=== PATIENT | male | born 1945 | race Caucasian/White ===

== ENCOUNTER → 2017-06-03 | Outpatient (CLI) | payer MEDICARE, OTHER, SELFPAY | PROVIDERS: Family Provider Internal Medicine Adolescent Medicine; Visit Provider Internal Medicine Adolescent Medicine | DX: R05 Cough (principal) | CPT/HCPCS: 71020 ==

== ENCOUNTER → 2017-07-14 09:33 | Outpatient (CLI) | payer MEDICARE, OTHER, SELFPAY ==
[2017-07-14 11:47] VITALS: PULSE 77; PULSE 80
== END ==
PROVIDERS: Family Provider Internal Medicine Adolescent Medicine; PCP Internal Medicine Adolescent Medicine; Visit Provider Internal Medicine Adolescent Medicine
DX: R05 Cough (principal)
CPT/HCPCS: 94060; 94640; 94726; 94729

== ENCOUNTER → 2020-11-17 10:21 | Outpatient (CLI) | payer MEDICARE, OTHER, SELFPAY ==
[2020-11-17 11:41] LABS: Hemoglobin A1C 5.8 % (4.0-6.0)
[2020-11-17 11:44] LABS: Chloride 105 mmol/L (98-107); Sodium 142 mmol/L (136-145)
[2020-11-17 11:45] LABS: Potassium 4.7 mmoL/L (3.5-5.1)
[2020-11-17 11:47] LABS: Alanine Aminotransferase 8 U/L (12-78); Alkaline Phosphatase 81 U/L (38-126); Aspartate Amino Transferase 23 U/L (17-59); Bilirubin,Total 1.1 mg/dl (0.2-1.3); Blood Urea Nitrogen 14 mg/dl (9-20); Estimated Glomerular Filt Rate 65 ml/min (>60); GFR (African American) 79 ML/MIN (>60)
[2020-11-17 11:48] LABS: Albumin Level 3.9 g/dl (3.5-5.0); Albumin/Globulin Ratio 1.3 (1.1-1.8); Anion Gap 14.7 mEq/L (5-15); Calcium 8.6 mg/dl (8.4-10.2); Carbon Dioxide 27 mmol/L (22.0-30.0); Glucose 82 mg/dl (74-100); Total Protein,Serum 6.9 g/dl (6.3-8.2)
[2020-11-17 12:18] LABS: Thyroid Stimulating Hormone 3.31 uIU/mL (0.465-4.68)
== END ==
PROVIDERS: Visit Provider Internal Medicine Adolescent Medicine
DX: E03.9 Hypothyroidism, unspecified (principal); E11.9 Type 2 diabetes mellitus without complications; Z79.84 Long term (current) use of oral hypoglycemic drugs
CPT/HCPCS: 80053; 83036; 84443

== ENCOUNTER → 2021-02-23 09:06 | Outpatient (CLI) | payer MEDICARE, OTHER, SELFPAY ==
[2021-02-23 09:22] LABS: Alanine Aminotransferase 10 U/L (12-78); Albumin Level 3.4 g/dl (3.5-5.0); Albumin/Globulin Ratio 1.1 (1.1-1.8); Alkaline Phosphatase 74 U/L (38-126); Anion Gap 12.5 mEq/L (5-15); Aspartate Amino Transferase 18 U/L (17-59); Bilirubin,Total 0.4 mg/dl (0.2-1.3); Blood Urea Nitrogen 12 mg/dl (9-20); Calcium 8.5 mg/dl (8.4-10.2); Carbon Dioxide 28 mmol/L (22.0-30.0); Chloride 105 mmol/L (98-107); Estimated Glomerular Filt Rate 73 ml/min (>60); GFR (African American) 88 ML/MIN (>60); Globulin 3.1 g/dL (1.3-3.2); Glucose 111 mg/dl (74-100); Potassium 4.5 mmoL/L (3.5-5.1); Sodium 141 mmol/L (136-145); Total Protein,Serum 6.5 g/dl (6.3-8.2)
[2021-02-23 09:53] LABS: Hemoglobin A1C 6.3 % (4.0-6.0)
== END ==
PROVIDERS: Visit Provider Internal Medicine Adolescent Medicine
DX: E11.9 Type 2 diabetes mellitus without complications (principal); Z79.84 Long term (current) use of oral hypoglycemic drugs
CPT/HCPCS: 80053; 83036

== ENCOUNTER → 2021-05-28 19:45 | Outpatient (CLI) | payer MEDICARE, OTHER, SELFPAY ==
[2021-05-28 20:37] LABS: Hemoglobin A1C 6.1 % (4.0-6.0)
[2021-05-28 21:33] LABS: Chloride 105 mmol/L (98-107); Potassium 4.8 mmoL/L (3.5-5.1); Sodium 142 mmol/L (136-145)
[2021-05-28 21:35] LABS: Blood Urea Nitrogen 11 mg/dl (9-20); Estimated Glomerular Filt Rate 65 ml/min (>60); GFR (African American) 79 ML/MIN (>60)
[2021-05-28 21:36] LABS: Alanine Aminotransferase 10 U/L (12-78); Albumin Level 3.8 g/dl (3.5-5.0); Albumin/Globulin Ratio 1.3 (1.1-1.8); Alkaline Phosphatase 78 U/L (38-126); Anion Gap 9.8 mEq/L (5-15); Aspartate Amino Transferase 19 U/L (17-59); Bilirubin,Total 0.5 mg/dl (0.2-1.3); Calcium 8.7 mg/dl (8.4-10.2); Carbon Dioxide 32 mmol/L (22.0-30.0); Glucose 100 mg/dl (74-100); Total Protein,Serum 6.8 g/dl (6.3-8.2)
[2021-05-28 22:07] LABS: Thyroid Stimulating Hormone 1.29 uIU/mL (0.465-4.68)
== END ==
LOC: LAB 19:46 → LAB.DROPOF 05-29 10:40
PROVIDERS: Visit Provider Internal Medicine Adolescent Medicine
DX: E11.9 Type 2 diabetes mellitus without complications (principal); E78.5 Hyperlipidemia, unspecified; E03.9 Hypothyroidism, unspecified; Z79.84 Long term (current) use of oral hypoglycemic drugs
CPT/HCPCS: 80053; 83036; 84443

== ENCOUNTER → 2021-12-14 14:05 | Outpatient (CLI) | payer MEDICARE, OTHER, SELFPAY ==
--- NOTE | 2021-12-14 14:06 | CT_ITS ---
FINAL REPORT CLINICAL HISTORY: abnormal movement, history of TBI FINDINGS: Axial images of the head were obtained without contrast. Coronal reformatted images were also obtained. This study was performed with techniques to keep radiation doses as low as reasonably achievable (ALARA). Individualized dose reduction techniques using automated exposure control or adjustment of mA and/or kV according to the patient's size were employed. There is generalized age appropriate atrophy. There is no evidence of intracranial hemorrhage or mass. The ventricular size is within normal limits. There is no evidence of shift of the midline structures. No skull abnormality is seen on the bone window images. There is moderate mucosal thickening of the left maxillary sinus. IMPRESSION: No acute intracranial abnormality. Reviewed, Interpreted and Dictated by Lei Sanderson III, MD Transcribed by Emelia Jordan Authenticated and [facility]
== END ==
PROVIDERS: PCP Internal Medicine Adolescent Medicine; Visit Provider Specialist
DX: R25.1 Tremor, unspecified (principal); Z87.820 Personal history of traumatic brain injury
CPT/HCPCS: 70450

== ENCOUNTER → 2022-01-22 12:28 | Outpatient (CLI) | payer MEDICARE, OTHER, SELFPAY ==
[2022-01-22 14:23] LABS: Folate 5.85 ng/mL; Vitamin B12 > 1000 pg/mL (239-931)
== END ==
PROVIDERS: PCP Internal Medicine Adolescent Medicine; Visit Provider Specialist
DX: R25.1 Tremor, unspecified (principal)
CPT/HCPCS: 36415; 82607; 82746

== ENCOUNTER 2022-07-02 09:13 | Emergency (ER) | payer MEDICARE, OTHER, SELFPAY ==
[2022-07-02 09:35] VITALS: BP 137/61; PULSE 64; RESP 16; TEMP 36.8; O2SAT 96; BMI 33.5
--- NOTE | 2022-07-02 09:48 | EXP.UTC ---
Discharge Plan Disposition Patient Disposition: Home, Self-Care Condition: Good Prescriptions Prescriptions: No Action gabapentin 300 mg capsule 300 mg PO QHS trazodone 50 mg tablet 50 mg PO QHS PRN cyanocobalamin (vitamin B-12) 2,500 mcg tablet 2,500 mcg PO DAILY cholecalciferol (vitamin D3) 400 unit capsule 400 unit PO DAILY acetaminophen [Tylenol Extra Strength] 500 mg tablet 500 mg PO Q4H PRN furosemide 40 mg tablet 40 mg PO DAILY escitalopram oxalate 10 mg tablet 10 mg PO DAILY (DME) lancets [FreeStyle Lancets] 28 gauge misc See Rx Instructions .ROUTE .MEDSUPPLY Qty: 100 Rx Instructions: As directed (DME) FreeStyle Lite Strips Strip See Rx Instructions .ROUTE .MEDSUPPLY Qty: 10 Rx Instructions: As directed lovastatin 40 mg tablet 40 mg PO DAILY Anoro Ellipta 62.5-25 mcg/actuation blister with device INHALATION levothyroxine [Synthroid] 150 mcg tablet 150 mcg PO DAILY carvedilol 12.5 mg tablet 12.5 mg PO ONCE clotrimazole-betamethasone 1-0.05 % cream 1 applic TOPICAL TID Qty: 45 5RF Rx Instructions: Apply to penis BID-TID daily ofloxacin 0.3 % drops 3 drp OTIC DAILY PRN (Reason: ear wax) 7 Days Qty: 5 0RF Referrals Follow up/Referrals: Mamadou Mccabe MD [Primary Care Provider] - See instructions Activity Restrictions/Add. 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 and take as directed the Amoxicillin you Family Doctor sent in will treat your strep throat If you continue to have pain in your throat after you finish the medication make sure to follow up Return if needed If you start having issues swallowing food or water go straight to the Closest ER Clinical Impressions Clinical Impression: Strep throat Instructions Patient Instructions: DI for Strep Throat, Strep Throat, Amoxicillin Discharge ED Provider: Ro Gutiérrez [facility] [place] HPI General Stated complaint: having difficulty swallowing Time Seen by Provider: 07/02/22 09:48 History of Present Illness Provider Complaint: Patient states that he has been having pain in the left side of his throat when he swallows States that it hurts at times when he swallows and when he pushes on it feels weird. States that he seen his PCP yesterday and they said he had an ear infection and sent him in some antibiotics but hasnt picked them up yet States that he has still been eating and drinking ok but wanted someone to look at his throat and see if they see anything in there if he may have a scratch or something Related Data Home Medications Medication Instructions Recorded Confirmed acetaminophen 500 mg tablet 500 mg PO Q4H PRN 08/05/17 11/13/21 (Tylenol Extra Strength) cholecalciferol (vitamin D3) 10 400 unit PO DAILY 08/05/17 11/13/21 mcg (400 unit) capsule cyanocobalamin (vitamin B-12) 2,500 mcg PO DAILY 08/05/17 11/13/21 2,500 mcg tablet escitalopram oxalate 10 mg tablet 10 mg PO DAILY 08/05/17 12/10/21 furosemide 40 mg tablet 40 mg PO DAILY 08/05/17 12/10/21 gabapentin 300 mg capsule 300 mg PO QHS 08/05/17 12/10/21 trazodone 50 mg tablet 50 mg PO QHS PRN 08/05/17 12/10/21 blood sugar diagnostic (Ricardoyle #10 ea 01/09/21 11/13/21 Lite Strips) carvedilol 12.5 mg tablet 12.5 mg PO ONCE 01/09/21 12/10/21 lancets 28 gauge (FreeStyle #100 ea 01/09/21 12/10/21 Lancets) levothyroxine 150 mcg tablet 150 mcg PO DAILY 01/09/21 12/10/21 (Synthroid) lovastatin 40 mg tablet 40 mg PO DAILY 01/09/21 12/10/21 umeclidinium 62.5 mcg-vilanterol inhalation 01/09/21 12/10/21 25 mcg/actuation powdr for inhalation (Anoro Ellipta) Previous Rx's Medication Instructions Recorded ofloxacin 0.3 % ear drops 3 drp otic (ear) DAILY PRN ear wax 07/06/18 7 days #5 mL clotrimazole-betamethasone 1 1 applic topical TID #45 grams 01/09/21 %-0.05 % topical cream Allergies Allergy/Ad
[2022-07-02 09:49] LABS: UTC Strep Screen (Rapid) Positive (Negative)
[2022-07-02 10:03] VITALS: BP 137/61; PULSE 64; RESP 16; TEMP 36.8; O2SAT 96
== END 2022-07-02 10:07 | disposition home or self-care (01) ==
PROVIDERS: Emergency Provider Nurse Practitioner; PCP Internal Medicine Adolescent Medicine
DX: J02.0 Streptococcal pharyngitis (principal)
CPT/HCPCS: 87880; 99212; G0463

== ENCOUNTER 2022-11-25 11:32 | Observation (INO) | payer MEDICARE, OTHER, SELFPAY ==
[2022-11-25 11:15] VITALS: PULSE 48
--- NOTE | 2022-11-25 11:15 | CT_ITS ---
FINAL REPORT CLINICAL HISTORY: fall onto head, unknown LOC COMPARISON: 12/14/2021 FINDINGS: Axial images of the head were obtained without contrast. Coronal reformatted images were also obtained.This study was performed with techniques to keep radiation doses as low as reasonably achievable (ALARA). Individualized dose reduction techniques using automated exposure control or adjustment of mA and/or kV according to the patient''s size were employed. There is no evidence of intracranial hemorrhage or mass. The ventricular size is within normal limits. There is no evidence of shift of the midline structures. No abnormal extra axial fluid collection is identified. No skull abnormality is seen on the bone window images. There is right parietal scalp soft tissue swelling. Moderate left maxillary mucosal thickening is noted. IMPRESSION: No acute intracranial abnormality. Reviewed, Interpreted and Dictated by Lei Sanderson III, MD Transcribed by Tori Courtney Authenticated and [facility]
--- NOTE | 2022-11-25 11:15 | XR_ITS ---
FINAL REPORT CLINICAL HISTORY: weakness, dizziness COMPARISON: None FINDINGS: A single portable view of the chest was obtained. The heart size and pulmonary vascularity are within normal limits. The mediastinum is within normal limits. Mild bibasilar opacities may represent atelectasis or pneumonia. The bony thorax is intact. IMPRESSION: Mild bibasilar opacities. Reviewed, Interpreted and Dictated by Lei Sanderson III, MD Transcribed by Eileen Horta Authenticated and [facility]
--- NOTE | 2022-11-25 11:20 | CA_ITS ---
FINAL REPORT TECHNIQUE: Color Doppler, duplex Doppler and alfaro scale sonography of the bilateral neck arterial vasculature was performed. Velocities were measured in the carotid arteries. Stenosis evaluation based on the validated velocity criteria. CLINICAL HISTORY: dizziness, bradycardia, HTN, hyperlipidemia COMPARISON: None FINDINGS: The peak systolic velocity of the right common carotid artery is 70 cm/s. The peak systolic velocity of the right internal carotid artery is 90 cm/s and end diastolic velocity 19 cm/s. The ICA/CCA ratio 1.46. A mild amount of plaque is present. The right external carotid artery is patent. The right vertebral artery is patent with antegrade flow. The peak systolic velocity of the left common carotid artery is 87 cm/s. The peak systolic velocity of the left internal carotid artery is 95 cm/s and end diastolic velocity 19 cm/s. The ICA/CCA ratio is 1.41. A mild amount of plaque is present. The left external carotid artery is patent.The left vertebral artery is patent with antegrade flow. IMPRESSION: Less than 50% bilateral carotid stenoses. Bilateral patent vertebral arteries with antegrade flow. If indicated, CTA or MRA could further evaluate. Reviewed, Interpreted and Dictated by Lei Sanderson III, MD Transcribed by Eileen Horta Authenticated and [facility]
[2022-11-25 11:56] VITALS: BMI 31.5
[2022-11-25 12:00] VITALS: BP 106/63; PULSE 48; RESP 20; TEMP 36.6; O2SAT 94; BMI 31.1
[2022-11-25 12:01] LABS: Basophils % 0.4 % (0.1-2.0); Eosinophils # 0.2 K/mm3 (0.0-0.4); Eosinophils % 1.6 % (0.1-12.0); Hematocrit 44.9 % (42.0-52.0); Hemoglobin 14.3 g/dL (14.1-18.0); Lymphocytes # 1.1 K/mm3 (0.7-4.5); Lymphocytes % 12.2 % (10-50); Mean Corpuscular HGB Conc 31.9 g/dL (31.8-35.4); Mean Corpuscular Hemoglobin 27.2 pg (27.0-31.2); Mean Corpuscular Volume 85.5 fl (80-94); Mean Platelet Volume 8.1 fl (7.4-10.4); Monocytes # 0.6 K/mm3 (0.1-1.0); Monocytes % 6.9 % (1.7-9.3); Neutrophils # 7.1 K/mm3 (1.8-7.8); Neutrophils % 78.9 % (37.0-80.0); Platelet Count 202 K/mm3 (142-424); Red Blood Count 5.26 M/mm3 (4.60-6.20); Red Cell Distribution Width 15.1 % (11.5-17.5)
[2022-11-25 12:15] LABS: Anion Gap 12.1 mEq/L (5-15); Blood Urea Nitrogen 14 mg/dl (9-20); Calcium 8.4 mg/dl (8.4-10.2); Carbon Dioxide 28 mmol/L (22.0-30.0); Chloride 101 mmol/L (98-107); Creatinine Clearance Estimated 76 mL/min (50-200); Estimated Glomerular Filt Rate 59 ml/min (>60); GFR (African American) 71 ML/MIN (>60); Glucose 99 mg/dl (74-100); Potassium 4.1 mmoL/L (3.5-5.1); Sodium 137 mmol/L (136-145)
--- NOTE | 2022-11-25 12:23 | PC.NURSE ---
pt going to CT scan with radiology.
[2022-11-25 12:24] LABS: NT Pro Brain Natriuretic Pep. 976 pg/mL (0-450)
[2022-11-25 12:28] LABS: Troponin I < 0.01 ng/ml (0.00-0.034)
--- NOTE | 2022-11-25 12:39 | PC.NURSE ---
pt returned from CT at this time.
--- NOTE | 2022-11-25 13:22 | ECG_ITS ---
APPROVED REPORT Exam: Resting ECG HR:47 bpm ECG Measurements Heart Rate 47 AXES MD 259 P 59 QRSd 149 QRS 64 QT 464 T 45 QTc 428 Conclusion SINUS BRADYCARDIA WITH FIRST DEGREE AV BLOCK RIGHT BUNDLE BRANCH BLOCK [120+ ms QRS DURATION, UPRIGHT V1, 40+ ms S IN I/aVL/V4/V5/V6] ABNORMAL ECG UNCONFIRMED REPORT Electronically signed by : Mamadou Mccabe MD 11/26/2022 20:10:58
--- NOTE | 2022-11-25 14:03 | HMH.PHAINT1 ---
Pharmacy Intervention Comments: Home medication list verified through external fill history from outside pharmacy.
--- NOTE | 2022-11-25 15:22 | PC.NURSE ---
pt new admit this shift. pt alert and oriented. pt denies any pain. LS cta. bowel sounds active, abdomen soft nontender. pt up and ambulated around the room to bathroom. pt remains on telemetry. call light w/i reach.
[2022-11-25 15:28] LABS: Troponin I < 0.01 ng/ml (0.00-0.034)
[2022-11-25 16:00] VITALS: BP 121/47; PULSE 50; RESP 18; TEMP 36.8; O2SAT 97
[2022-11-25 16:58] VITALS: BP 109/60; BP 137/69; BP 142/72
[2022-11-25 17:18] LABS: Coronavirus 19, PCR Not Detected (NotDetected); Influenza A, PCR Not Detected (NotDetected); Influenza B, PCR Not Detected (NotDetected)
--- NOTE | 2022-11-25 17:28 | EXP.HP ---
History of Present Illness *Admission Date: 11/25/22 *Reason for visit:: hypotension, bradycardia, dizziness *History of present illness: 77 year old male with a history of hypothyroidism, HTN, HLD, anxiety, depression, neuropathy, diabetes, COPD and tremors presented to PCP office with dizziness and persistent bradycardia/hypotension. Seen in the office 11/22, SBP 90, HR 49, beta aiyana held x 24 hours then restarted at lower dose. Seen today for FU, SBP 82, HR 52. C/o weakness, dizziness stumbling around at home. Baseline HR 50's. Baseline SBP 130's. Denies CP, SOA or LE edema. No cough, chest congestion or fevers. No V/D or urinary symptoms. Direct admitted for IVF's and further evaluation. Of note- He had a fall off of son's bulldozer onto head 2 weeks ago, no LOC. [facility] Disclaimer: The information contained in this section may have been updated after the patient was seen, as this information can be updated by other users. Medical History (Updated 11/25/22 @ 17:38 by Mona Mathis APRN) COPD (chronic obstructive pulmonary disease) Diabetes mellitus, type 2 High cholesterol Surgical History H/O vasectomy History of cholecystectomy Social History Smoking Status: Former smoker alcohol intake: never substance use type: denies use current occupational status: retired Travel in the last 8 weeks: None household members: spouse housing: house Review of Systems Review of Systems Review of systems:: pertinent systems reviewed and negative unless documented below Constitutional Constitutional: Reports fatigue and Reports weakness Eyes Eyes: Reports system reviewed and no additional complaints, except as documented ENT Ears, Nose, Mouth, and Throat: Reports system reviewed and no additional complaints, except as documented and Reports dizziness *Cardiovascular Cardiovascular: Reports as per HPI *Respiratory Respiratory: Reports system reviewed and no additional complaints, except as documented *Gastrointestinal Gastrointestinal: Reports system reviewed and no additional complaints, except as documented *Genitourinary Genitourinary: Reports system reviewed and no additional complaints, except as documented *Musculoskeletal Musculoskeletal: Reports system reviewed and no additional complaints, except as documented *Neurologic Neurologic: Reports dizziness, Reports tremor(s) and Reports weakness Psychiatric Psychiatric: Reports anxiety and Reports depression Comments: well controlled on SSRI Endocrine Endocrine: Reports fatigue Hematologic/Lymphatic Hematologic/Lymphatic: Reports system reviewed and no additional complaints, except as documented Allergic/Immunologic Allergic/Immunologic: Reports system reviewed and no additional complaints, except as documented Meds Home Medications and Allergies Home Medications Medication Instructions Recorded Confirmed Type escitalopram oxalate 10 mg tablet 10 mg PO DAILY Mood 08/05/17 11/25/22 History blood sugar diagnostic (FreeStyle #10 ea 01/09/21 11/04/22 History Lite Strips) lancets 28 gauge (FreeStyle #100 ea 01/09/21 11/04/22 History Lancets) levothyroxine 150 mcg tablet 150 mcg PO DAILY Thyroid 01/09/21 11/25/22 History (Synthroid) lovastatin 40 mg tablet 40 mg PO DAILY Cholesterol 01/09/21 11/25/22 History gabapentin 300 mg capsule 300 mg PO AM Nerve pain 09/09/22 11/25/22 History trazodone 50 mg tablet 50 mg PO QHS Sleep 09/09/22 11/25/22 History cetirizine 10 mg tablet 10 mg PO ONCE Allergies 11/25/22 11/25/22 History clotrimazole-betamethasone 1 1 applic topical TID Rash 11/25/22 11/25/22 History %-0.05 % topical cream gabapentin 300 mg capsule 600 mg PO PM Nerve pain 11/25/22 11/25/22 History lifitegrast 5 % eye drops in a 1 drp Eye-Both DAILY Dry eye 11/25/22 11/25/22 History dropperette (Xiidra) umeclidinium 62.5 mcg-vilanterol 1 inh inhal
--- NOTE | 2022-11-25 17:37 | PC.NURSE ---
spoke with Dr. Mccabe in regards to patient. Dr. Mccabe states to d/c Carvedilol, order an EKG for in the am. Regular diet order and scds for Vte. Orders R&V. Dietary called for supper tray.
[2022-11-25 18:41] LABS: Troponin I < 0.01 ng/ml (0.00-0.034)
[2022-11-25 20:00] VITALS: BP 131/62; PULSE 50; PULSE 53; RESP 18; TEMP 36.3; O2SAT 96
[2022-11-25 20:19] LABS: Hemoglobin A1C 5.8 % (4.0-6.0)
[2022-11-26] VITALS: BP 142/69; PULSE 50; PULSE 60; RESP 18; TEMP 36.4; O2SAT 90
[2022-11-26 04:00] VITALS: BP 130/63; PULSE 58; RESP 20; TEMP 36.4; O2SAT 95; BMI 32.9
--- NOTE | 2022-11-26 05:30 | ECG_ITS ---
APPROVED REPORT Exam: Resting ECG HR:58 bpm ECG Measurements Heart Rate 58 AXES IN 248 P 68 QRSd 154 QRS 87 QT 450 T 32 QTc 448 Conclusion SINUS BRADYCARDIA WITH FIRST DEGREE AV BLOCK RIGHT BUNDLE BRANCH BLOCK [120+ ms QRS DURATION, UPRIGHT V1, 40+ ms S IN I/aVL/V4/V5/V6] ABNORMAL ECG UNCONFIRMED REPORT Electronically signed by : Mamadou Mccabe MD 11/26/2022 20:05:00
[2022-11-26 08:00] VITALS: BP 138/57; PULSE 58; PULSE 61; RESP 18; TEMP 36.7; O2SAT 95
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
--- NOTE | 2022-11-26 09:16 | HMH.PHAINT1 ---
Pharmacy Intervention Comments: Discharge medication counseling completed. Patient was starting no new meds, but was told to stop taking carvedilol. Patient had discussed this with Dr. Mccabe this morning. Patient and loved one verbalized understanding and had no questions.
--- NOTE | 2022-11-26 09:42 | HMH.OTEV ---
OT Inpatient Evaluation Rehab OT IP Evaluation Start: 11/26/22 08:15 Freq: ONCE Status: Active Protocol: Document 11/26/22 09:38 [facility] (Rec: 11/26/22 09:42 [facility] [id number]) Rehab OT IP Assessment Subjective History Pt oriented x 4 on arrival. Pt agreeable to engage in therapy evaluation. 77 year old male with a history of hypothyroidism, HTN, HLD, anxiety, depression, neuropathy, diabetes, COPD and tremors presented to PCP office with dizziness and persistent bradycardia/ hypotension. Pt was a direct admit on 11/25/22. Prior to being in the hosptial, pt lived at home with his . Pt was independent with all ADLs and IADLs. Pt did not require any type of AE during functional transfers or daily activities. Pt also still drove. Subjective I am ready to go home and I feel much better. Objective Patient Orientation Person,Place,Birthday,Month Upper Extremity Gross ROM WFL Bed Mobility bed mobility-scooting,bed mobility - supine/sit,bed mobility - rolling Assist Level Supervision/Stand by Transfer Training Sit/Stand Transfer Assist Level Supervision/Stand by Chair Transfer Ability Supervision/Stand by Chair Transfer Technique Sit to/from Ambulatory Chair Transfer Assistive Devices None Lower Body Dressing Ability Independent Rehab OT IP prob,goals,plan Problems Date of Evaluation: 11/26/22 Rehab Potential Rehab Potential Innapropriate for Skilled Therapy Discharge Plan OT Discharge Plan Pt appears to be at his baseline with functional transfers and ADL independence . Pt can return home with once medically stable per physician. Home health OT evaluation could be completed if family agreeable to evaluate patient's home safety . Eval Complexity Eval Charge Codes
--- NOTE | 2022-11-26 09:51 | SW/DCPLANNER ---
Addendum entered by Rachna Shi 11/27/22 12:49: Rosana stout/ [facility] called and stated that this patient refused home health services. Addendum entered by Rachna Shi 11/26/22 12:03: Rosana stout/ [facility] stated that services will begin tomorrow 11/27/22. Original Note: Patient is agreeable to home health services at time of discharge. Patient/ prefer to use [facility]. Patient information/order will be faxed today. Patient is expected to discharge home this afternoon.
--- NOTE | 2022-11-26 10:38 | HMH.PTEV ---
Physical Therapy Evaluation Rehab PT IP Evaluation Start: 11/26/22 08:15 Freq: ONCE Status: Active Protocol: Document 11/26/22 09:00 TESFAYE (Rec: 11/26/22 10:38 TESFAYE [id number]) Subjective/History History History 77 yowm adm to [facility] with hypotension, bradycardia, and dizziness. Hx of Hypothyroid, HTN, HLD, anxiety, DM, COPD. He reports he lives with his spouse, 3-4 steps to enter the home, and he is generally independent with all mobility without AD at baseline. Subjective Subjective He reports feeling much better today, no dizziness, feels he is at baseline for all mobility. Rehab PT IP Eval Objective Appearance Patient Behavior Appropriate Patient Orientation Person,Place,Time Difficulty following instructions none Speech Pattern Clear Ambulation Patient Able to Ambulate Yes Ambulation Observation IP General Gait Pattern Observation No Deviations/Normal Ambulation Distance (feet) 40 Ambulation Assistive Device None Ambulation Ability Independent Balance Ability to Arise Able, w/o using arms Sitting Balance Steady, safe Standing Balance Narrow stance w/o support Dynamic Sitting Balance Ability Normal Dynamic Standing Balance Ability Good Transfers Bed Transfer Ability Independent Chair Transfer Ability Independent Sit to Stand Bed Transfer Ability Supervision/Stand by Sit to Stand Chair Transfer Ability Independent ROM All Extremities PT ROM Status WFL MMT All Extremities PT MMT WFL Rehab PT IP prob,goals,plan Problems Date of Evaluation: 11/26/22 Discharge Plan PT Discharge Plan Pt is currently indpendent with all mobility and is appropriate to return home once medically stable for d/c. G -code Required No Eval Complexity Eval Charge Codes 23600 - High Complexity PHYSICIAN CERTIFICATION: I certify the specified therapy services for Bhavin Ruiz are required, authorized, and reviewed every 30 days.
--- NOTE | 2022-11-27 14:40 | CARE MANAGER ---
Spoke with patient for post-discharge phone interview, no issues noted.
== END 2022-11-26 10:28 | disposition home health service (06) ==
PROVIDERS: Nurse Practitioner Family; Admitting Provider Internal Medicine Adolescent Medicine; PCP Internal Medicine Adolescent Medicine; Visit Provider Internal Medicine Adolescent Medicine
DX: I45.10 Unspecified right bundle-branch block (principal); I65.23 Occlusion and stenosis of bilateral carotid arteries; I95.9 Hypotension, unspecified; G56.22 Lesion of ulnar nerve, left upper limb; J44.9 Chronic obstructive pulmonary disease, unspecified; E11.9 Type 2 diabetes mellitus without complications; E78.00 Pure hypercholesterolemia, unspecified; R29.6 Repeated falls; Z87.891 Personal history of nicotine dependence; Z79.899 Other long term (current) drug therapy; R06.9 Unspecified abnormalities of breathing
CPT/HCPCS: G0378; G0379; 36415; 70450; 71045; 80048; 83036; 83735; 83880; 84484; 85025; 87635; 87636; 88305; 93005; 93225; 93226; 93306; 93880; 97163; 97165; C9803; U0003; U0005

== ENCOUNTER 2023-01-08 12:19 | Day surgery (SDC) | payer MEDICARE, OTHER, SELFPAY ==
[2023-01-08 12:39] VITALS: BMI 31.8
[2023-01-08 13:13] VITALS: BP 155/69; PULSE 59; RESP 18; TEMP 36.9; O2SAT 95
[2023-01-08 13:18] VITALS: PULSE 66
[2023-01-08 13:33] VITALS: BP 157/80; PULSE 60; RESP 20; O2SAT 95
--- NOTE | 2023-01-08 13:33 | P.PCN_ITS ---
[facility] Loop Recorder Date: 01/08/23 Time: 13:25 Procedure Performed:: Implantation of loop recorder Indication:: sinus bradycardia and 2nd degree AVB Technique:: Patient was brought to the cardiac Electronic Data Interchange Specialist. After informed consent obtained, 1% lidocaine with epinephrine was used to anesthetize the site along the left anterior aspect of the chest near the sternal border. Using the preformed s calpel, an incision was made and using the supplied preloaded apparatus, the loop recorder was placed subcutaneously without difficulty. Following the deployment of the loop recorder interrogation of the device was performed to ensure appropriate voltage was detected. Once this was verified, Steri-Strips were placed over the incision and the patient was prepped to discharge home. Patient tolerated the procedure well with minimal discomfort. Impression:: Successful implantation of loop recorder Serial Number:: [id number] [employer] Arredondo Plan:: Routine postop care
== END 2023-01-08 14:01 | disposition home or self-care (01) ==
PROVIDERS: PCP Internal Medicine Adolescent Medicine; Visit Provider Internal Medicine
DX: I44.1 Atrioventricular block, second degree (principal); Z79.899 Other long term (current) drug therapy; E11.9 Type 2 diabetes mellitus without complications; J44.9 Chronic obstructive pulmonary disease, unspecified
CPT/HCPCS: 33285; C1764

== ENCOUNTER → 2023-01-09 07:39 | Outpatient (CLI) | payer MEDICARE, OTHER, SELFPAY ==
--- NOTE | 2023-01-09 | CA_ITS ---
APPROVED REPORT Exam: Pharmacologic Technologist: Wanda Ledezma, Ht: 5 ft 11 in Wt: 228 lbs BSA: 2.23 m2 HR: 57 bpm BP: 162/74 mmHg Rhythm: SINUS BRADYCARDIA, 1 DEGREE AVB, RBBB Indications: Arrhythmia Evaluation Medical History Medical History: Hyperlipidemia, Diabetes, Smoking Medications: Levothyroxine,,,,, Lovastatin,,,,, Trazadone,,,,, Gabapentin,,,,, Escitalopram,,,,, CetIRIZINE,,,,, ANoro Ellipta,,,,, Oxalate,,,,, Allergies: No known drug allergies Cardiac Risk Factors: Hyperlipidemia, Diabetes , Smoking Stress Test Details Test: LEXISCAN HR Resting HR: 56 bpm Max Heart Rate (APMHR): 144 bpm Max HR Achieved: 64 bpm Target HR (85% APMHR): 122 bpm % of APMHR: 44 Recovery HR: 56 bpm BP Resting BP: 162.0/74.0 mmHg Max BP: 164.0/57.0 mmHg Recovery BP: 164.0/57.0 mmHg ECG Resting ECG: SINUS BRADYCARDIA, 1 DEGREE AVB, RBBB Stress EC.[address] Change: None Clinical Exercise duration: 04:04 min Highest Stage Achieved: Stress ECG Conclusion PT HAD NO SYMPTOMS SINUS PAUSE OF 2.2 SECONDS IMMEDIATELY WITH LEXISCAN INFUSION. OTHER OCCASIONAL SINUS PAUSES OF 1.8 SECONDS OCCURING THROUGH OUT TEST. NO SIGNIFICANT ST CHANGES SINUS PAUSES; OTHERWISE UNREMARKABLE LEXISCAN STRESS. THE PATIENT WAS DISCHARGED IN STABLE AND ASYMPTOMATIC CONDITION [facility] [place] [facility] SEPARATELY Test Summary REST 04:29 . . 56 . 162/ 74 . . Stage 1 01:00 . . 61 . . . . Stage 2 01:00 . . 61 . . . . Stage 3 01:00 . . 63 . 150/ 77 . . Stage 4 01:00 . . 53 . 154/ 76 . . Stage 4 01:04 . . 60 . 154/ 76 . Stop exercise at 04:04 RECOVERY 01:00 . . 59 . . . . RECOVERY 02:00 . . 60 . 161/ 58 . . RECOVERY 03:00 . . 57 . 164/ 57 . . RECOVERY 03:18 . . 52 . 164/ 57 . . Electronically signed by : Sylwia Tirado, 01/09/2023 13:47:35
--- NOTE | 2023-01-09 07:44 | NM_ITS ---
APPROVED REPORT Exam: Nuclear Stress Test Indication: high cholesterol..family hx Patient Location: Outpatient Stress Tech: Wanda Ledezma DC Tech:Amelie ZamudioDUNCAN RT(R)(N) Ht: 5 ft 10 in Wt: 230 lbs HR: 55 bpm BP: 162/74 mmHg BSA: 2.21 m2 Rhythm: NSR TID: 0.93 BMI: 32.9 History: high cholesterol..family hx Procedure: Patient received 0.4 mg of intravenous Lexiscan, resting heart rate 55 bpm, resting blood pressure 162/74 mmHg, with Lexiscan maximum heart rate achieved was 64 bpm which is 85 % of the maximum predicted heart rate and blood pressure was 164/57 mmHg. With Lexiscan, patient denied any complaint of chest pain. The patient was not able to lay on his belly for prone images. Cardiac Stress and Resting SPECT Images: Cardiac Stress and Resting SPECT images were obtained using technetium 99m Myoview 31.6 mCi stress and 10.65 mCi at rest. The patient was not able to lie on his abdomen. Therefore, prone stress imaging could not be performed. This may affect the diagnostic interpretation of the study findings. Stress imaging in supine position demonstrate large sized, severe, fixed perfusion defect in the inferior and inferoseptal LV lamas from the base and extending distally towards the inferoapical region. Gated imaging demonstrates normal global LV systolic function. There is moderate hypokinesis in the inferior LV wall. LVEF is calculated at 66%. Conclusion: The patient was not able to lie on his abdomen. Therefore, prone stress imaging could not be performed. This may affect the diagnostic interpretation of the study findings. Large sized, severe, fixed perfusion defect in the inferior and inferoseptal LV lamas from the base and extending distally towards the inferoapical region. No evidence of reversible ischemia. Gated imaging demonstrates normal global LV systolic function. There is moderate hypokinesis in the inferior LV wall. LVEF is calculated at 66%. Electronically signed by : Sylwia Tirado, 01/09/2023 13:50:28
== END ==
PROVIDERS: PCP Internal Medicine Adolescent Medicine; Visit Provider Internal Medicine
DX: E11.9 Type 2 diabetes mellitus without complications (principal); I45.10 Unspecified right bundle-branch block; J44.9 Chronic obstructive pulmonary disease, unspecified; R00.1 Bradycardia, unspecified; R94.31 Abnormal electrocardiogram [ECG] [EKG]; Z87.891 Personal history of nicotine dependence; Z92.89 Personal history of other medical treatment
CPT/HCPCS: 78452; 93017; A9502; J2785

== ENCOUNTER 2023-06-03 11:20 | Emergency (ER) | payer OTHER, MEDICARE, SELFPAY ==
[2023-06-03] VITALS (7 sets, daily range): BP systolic 106–137; BP diastolic 33–87; PULSE 42–50; RESP 15–18; TEMP 36.6–36.7; O2SAT 95–97; BMI 31.2
--- NOTE | 2023-06-03 11:27 | PC.NURSE ---
c collar placed on pt
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
--- NOTE | 2023-06-03 12:01 | PC.WOUNDNOTE ---
ed guerrier removed and placed in a gown call light at
[2023-06-03 12:05] LABS: Basophils % 0.4 % (0.1-2.0); Eosinophils # 0.2 K/mm3 (0.0-0.4); Eosinophils % 2.3 % (0.1-12.0); Hematocrit 41.7 % (42.0-52.0); Hemoglobin 13.9 g/dL (14.1-18.0); Lymphocytes # 1.3 K/mm3 (0.7-4.5); Lymphocytes % 17.6 % (10-50); Mean Corpuscular HGB Conc 33.4 g/dL (31.8-35.4); Mean Platelet Volume 7.3 fl (7.4-10.4); Monocytes # 0.5 K/mm3 (0.1-1.0); Monocytes % 6.3 % (1.7-9.3); Neutrophils # 5.4 K/mm3 (1.8-7.8); Neutrophils % 73.4 % (37.0-80.0); Platelet Count 207 K/mm3 (142-424); Red Cell Distribution Width 14.4 % (11.5-17.5); White Blood Count 7.3 K/mm3 (4.8-10.8)
[2023-06-03 12:10] LABS: Anion Gap 6.2 mEq/L (5-15); Blood Urea Nitrogen 13 mg/dl (9-20); Calcium 7.9 mg/dl (8.4-10.2); Carbon Dioxide 30 mmol/L (22.0-30.0); Chloride 105 mmol/L (98-107); Creatinine Clearance Estimated 74 mL/min (50-200); Estimated Glomerular Filt Rate 59 ml/min (>60); GFR (African American) 71 ML/MIN (>60); Glucose 95 mg/dl (74-100); Potassium 4.2 mmoL/L (3.5-5.1); Sodium 137 mmol/L (136-145)
--- NOTE | 2023-06-03 12:26 | PC.NURSE ---
PT TO CT
[2023-06-03] MEDS: IOPAMIDOL-370 (76%);100ML BOTTLE 100 ML IV (13:06)
[2023-06-03] MEDS: SODIUM CHLORIDE 0.9% 10ML SYR (RAD ONLY) 10 ML IV (13:06)
[2023-06-03] MEDS: 0.9 % SODIUM CHLORIDE 50 ML VIAL 40 ML IV (13:06)
--- NOTE | 2023-06-03 14:08 | PC.NURSE ---
c collar removed per md marcelino
== END 2023-06-03 14:50 | disposition home or self-care (01) ==
PROVIDERS: Emergency Provider Emergency Medicine; PCP Internal Medicine Adolescent Medicine
DX: M54.2 Cervicalgia (principal); M25.511 Pain in right shoulder; M79.642 Pain in left hand; S06.9X9A Unspecified intracranial injury with loss of consciousness of unspecified duration, initial encounter; R00.1 Bradycardia, unspecified; J44.9 Chronic obstructive pulmonary disease, unspecified; E11.9 Type 2 diabetes mellitus without complications; E78.00 Pure hypercholesterolemia, unspecified; Z87.891 Personal history of nicotine dependence; V49.50XA Passenger injured in collision with unspecified motor vehicles in traffic accident, initial encounter
CPT/HCPCS: 70450; 71275; 72125; 72128; 72131; 73030; 73130; 74174; 80048; 85025; 99285; Q9967

== ENCOUNTER 2023-06-17 12:36 | Outpatient (CLI) | payer MEDICARE, OTHER, SELFPAY ==
--- NOTE | 2023-06-17 12:38 | CA_ITS ---
APPROVED REPORT EXAM: Limited 2D Echocardiogram It Programmer Analyst: Bobbi Neri, RCS, RVS Ht: 5 ft 11 in Wt: 223lbs BSA: 2.21 BP: 136/52 mmHg Rhythm: Bradycardia Indications: Pre-pacer placement 06/18/23, LVF-WNL11/2022, EF check 2D Dimensions IVSd 0.60 cm LVEF (Visual) 50.00 % PWd 0.73 cm EF AP4 48.30 % LVDd 4.57 cm GL Strain -10.8 % LVDs 5.28 cm RVID Base (AP4) 3.27 cm (M/F) 2.5-4.1 M-Mode Dimensions LVDd 4.57 cm (3.5-5.7) LVDs 5.28 cm (3.5-5.7) IVSd 0.60 cm (0.6-1.1) PWd 0.73 cm (0.6-1.1) FS 15.50% LV Diastology E Decel Time 183 (160-240 msec) E/A Ratio 1.36 MED E' 5.8 (>= 7 cm/sec) MED A' 9.50 cm/s E'/MED E' Ratio 13.40 (<= 14) Mitral Valve MV E Max Dharmesh. 78.0 (40-130 cm/s) MV A Velocity 57.0 (40-130 cm/s) E/A Ratio 1.36 MV Decel. Time 183 (160-240 ms) Other Information Study Quality: Fair Conclusion This is a limited TTE to evaluate of LVEF prior to PPM insertion. Limited windows were obtained. The left ventricle size is normal. There is normal LV wall thickness. There are no regional wall motion abnormalities noted. LVEF is 60%. Compared to prior study from 11/2022, the LVEF is unchanged. Electronically signed by : Sylwia Tirado MD 06/17/2023 17:39:16
== END 2023-06-17 23:59 ==
PROVIDERS: PCP Internal Medicine Adolescent Medicine; Visit Provider Internal Medicine
DX: I44.0 Atrioventricular block, first degree (principal); I44.1 Atrioventricular block, second degree; I45.10 Unspecified right bundle-branch block; R00.1 Bradycardia, unspecified; R94.31 Abnormal electrocardiogram [ECG] [EKG]; E11.9 Type 2 diabetes mellitus without complications; G25.0 Essential tremor; J44.9 Chronic obstructive pulmonary disease, unspecified; Z87.891 Personal history of nicotine dependence; Z92.89 Personal history of other medical treatment
CPT/HCPCS: 93308

== ENCOUNTER 2023-06-18 09:03 | Day surgery (SDC) | payer MEDICARE, OTHER, SELFPAY ==
[2023-06-18] VITALS (13 sets, daily range): BP systolic 106–180; BP diastolic 68–99; PULSE 49–62; RESP 17–20; O2SAT 94–97; BMI 31.1
--- NOTE | 2023-06-18 | IR_ITS ---
APPROVED REPORT Patient Location: Outpatient Pace Analyst: DUNCAN Ritter RT (R) PROCEDURES 1. Pocket formation for Permanent Pacemaker Placement. 2. Placement of an atrial sensing and pacing coil into the right atrial appendage. 3. Placement of a ventricular sensing and pacing coil in the right ventricular apex. 4. Permanent Pacemaker Placement. 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 COMPLICATIONS NONE Estimated Blood Loss: LESS THAN 10 ML TECHNIQUE 1% Lidocaine with epinephrine used to anesthetized the left anterior aspect of the chest. Scalpel was used to make the initial cutaneous incision while electrocautery was used to dissect down tinto the fascia. The fascia was lifted off the pectoralis muscle and digitally manipulated creating a pocket for the pacemaker. The patient was then placed in Trendelenburg position and the subclavian vein was accessed twice via the Selinger technique, there are two wires in the vein. A 6 Bhutanese sheath was placed under fluoroscopic guidance into the subclavian vein over one of the wires while keeping the other wire in place within the subclavian vein. The dilator was removed from the sheath. Using fluoroscopic guidance, the ventricular lead was placed into the right ventricular apex, screwed and secured into place. Electronic interrogation proved acceptable thresholds and voltage within the lead. Using 3-0 silk, the ventricular lead was then secured into place. Lead was secured to the facia using the 3-0 silk. Following this, the sheath was pealed away. An additional 6 Bhutanese fresh sheath and dilator was placed over the existing wire. Using fluoroscopic guidance, the atrial lead was the placed into the right atrial appendage and screwed and secured in place. Electrical interrogation demonstrated acceptable thresholds and voltage number. The atrial lead was then secured into place using 3-0 silk. 1 gram of Ancef was used to flush the pocket. Following the pacemaker generator being secured to the fascia and in place, Monocryl was used to close the subcutaneous layers while jany were used to close the cutaneous layer. A pressure dressing was placed and the patient was transferred to the postop holding area in stable condition for postoperative care. INTERROGATION Generator Model number: [employer] PD2402 Generator Serial number: [id number] Atrial lead model number:Tendril STS 8TC Atrial lead serial number: [id number] P-wave: 2.8 mV Impedence: 560 Ohms Threshold: 1.125V@0.4ms Right Ventricular lead model number: Conrad STS 8TC Right Ventricular lead serial number: [id number] R-wave: 8.5 mV Impedence: 860 Ohms Threshold: 1.0V@0.4ms Pacing Parameters: Mode: DDDR Base/Max Track:60 ppm / 130 ppm No diaphragmatic stimulation at 10 volts. IMPRESSION 1. Successful Pocket formation for Permanent Pacemaker Placement. 2.Successful Placement of an atrial sensing and pacing coil into the right atrial appendage. 3.Successful Placement of a ventricular sensing and pacing coil in the right ventricular apex. 4. Successful Permanent Pacemaker Placement. PLAN 1. Postop wound care. Electronically signed by : Jimenez Noriega MD 06/19/2023 12:20:43
[2023-06-18 09:42] LABS: Basophils # 0.1 K/mm3 (0-0.2); Basophils % 0.8 % (0.1-2.0); Eosinophils # 0.4 K/mm3 (0.0-0.4); Eosinophils % 4.5 % (0.1-12.0); Hematocrit 49.3 % (42.0-52.0); Lymphocytes # 1.4 K/mm3 (0.7-4.5); Lymphocytes % 17.6 % (10-50); Mean Corpuscular HGB Conc 32.4 g/dL (31.8-35.4); Mean Corpuscular Hemoglobin 28.2 pg (27.0-31.2); Mean Corpuscular Volume 87.2 fl (80-94); Mean Platelet Volume 8.2 fl (7.4-10.4); Monocytes # 0.5 K/mm3 (0.1-1.0); Monocytes % 5.8 % (1.7-9.3); Neutrophils # 5.5 K/mm3 (1.8-7.8); Neutrophils % 71.3 % (37.0-80.0); Platelet Count 268 K/mm3 (142-424); Red Blood Count 5.65 M/mm3 (4.60-6.20); Red Cell Distribution Width 14.7 % (11.5-17.5); White Blood Count 7.7 K/mm3 (4.8-10.8)
[2023-06-18 09:48] LABS: Anion Gap 11.1 mEq/L (5-15); Blood Urea Nitrogen 17 mg/dl (9-20); Calcium 8.6 mg/dl (8.4-10.2); Carbon Dioxide 29 mmol/L (22.0-30.0); Chloride 102 mmol/L (98-107); Creatinine Clearance Estimated 74 mL/min (50-200); Estimated Glomerular Filt Rate 59 ml/min (>60); GFR (African American) 71 ML/MIN (>60); Glucose 92 mg/dl (74-100); Potassium 4.1 mmoL/L (3.5-5.1); Sodium 138 mmol/L (136-145)
[2023-06-18] MEDS: diphenhydrAMINE 50MG/ML VIAL 50 MG IV (12:28)
[2023-06-18] MEDS: CEFAZOLIN SODIUM 1 GM in 0.9 % SODIUM CHLORIDE 50 ML IV (12:28)
[2023-06-18] MEDS: LIDOCAINE 1% W/EPI 1:100,000 20ML VIAL 20 ML SQ (12:28)
[2023-06-18] MEDS: 0.9 % SODIUM CHLORIDE 1000ML 1,000 ML 25 ML IV (12:29)
[2023-06-18] MEDS: CEFAZOLIN 1GM VIAL 1 GM TP (12:29)
--- NOTE | 2023-06-18 13:28 | XR_ITS ---
FINAL REPORT CLINICAL HISTORY: Confirm pacemaker/AID placement COMPARISON: 11/25/2022 FINDINGS: A single portable view of the chest was obtained. In the interval since the prior exam of November 2022 a left subclavian pacer has been placed. The heart size and pulmonary vascularity are within normal limits. The mediastinum is within normal limits. There are mild bibasilar opacities present, favor atelectasis. The bony thorax is intact. IMPRESSION: Interval placement of a left subclavian pacemaker since November 2022. Mild bibasilar opacities, favor atelectasis. Reviewed, Interpreted and Dictated by Lei Sanderson III, MD Transcribed by Jeri Adam Authenticated and [facility]
--- NOTE | 2023-06-18 13:35 | EXP.ANES.CKL ---
[facility] Disclaimer: The information contained in this section may have been updated after the patient was seen, as this information can be updated by other users. Medical History COPD (chronic obstructive pulmonary disease) Diabetes mellitus, type 2 Essential tremor High cholesterol Surgical History H/O vasectomy History of cholecystectomy Social History Smoking Status: Former smoker alcohol intake: never substance use type: denies use current occupational status: retired Travel in the last 8 weeks: None household members: spouse housing: house [facility] Anesthesia Checklist Patient Identification Patient Identification: Verbal (Name & ) Structural Data Admitted From: Home Planned Operative Procedure/s: pacemaker Consent for Planned Operative Procedure(s) Verified: Yes NPO Status Verified Time NPO: 00:00 Additional verifications Anesthesia Reactions: No Hx Blood Transfusions: No Blood Transfusion Reaction: No Airway Assessment Mallampati Score:: Class II C-Spine Mobility Assessed: Yes TMJ Mobility Assessed: Yes Dentition: Dentures-good fit Neurological Assessment Level of Consciousness: Awake, Alert and Appropriate Anesthesia Plan Anesthesia Risk discussed: Yes Anesthesia Plan: Verified ASA Class: III Anesthesia Type: MAC
--- NOTE | 2023-06-18 23:29 | EXP.ANES.CKL ---
[facility] Disclaimer: The information contained in this section may have been updated after the patient was seen, as this information can be updated by other users. Medical History COPD (chronic obstructive pulmonary disease) Diabetes mellitus, type 2 Essential tremor High cholesterol Surgical History H/O vasectomy History of cholecystectomy Social History Smoking Status: Former smoker alcohol intake: never substance use type: denies use current occupational status: retired Travel in the last 8 weeks: None household members: spouse housing: house [facility] Anesthesia Checklist Patient Identification Patient Identification: Verbal (Name & ) Structural Data Admitted From: Inpatient Planned Operative Procedure/s: labor epidural Consent for Planned Operative Procedure(s) Verified: Yes Additional verifications Anesthesia Reactions: No Hx Blood Transfusions: No Blood Transfusion Reaction: No Airway Assessment Mallampati Score:: Class II C-Spine Mobility Assessed: Yes TMJ Mobility Assessed: Yes Dentition: Good Dentition Neurological Assessment Level of Consciousness: Awake, Alert and Appropriate Anesthesia Plan Anesthesia Risk discussed: Yes Anesthesia Plan: Verified ASA Class: II Anesthesia Type: Epidural
--- NOTE | 2023-06-18 23:37 | EXP.ANES.CKL ---
[facility] Disclaimer: The information contained in this section may have been updated after the patient was seen, as this information can be updated by other users. Medical History COPD (chronic obstructive pulmonary disease) Diabetes mellitus, type 2 Essential tremor High cholesterol Surgical History H/O vasectomy History of cholecystectomy Social History Smoking Status: Former smoker alcohol intake: never substance use type: denies use current occupational status: retired Travel in the last 8 weeks: None household members: spouse housing: house [facility] Anesthesia Checklist Patient Identification Patient Identification: Verbal (Name & ) Structural Data Admitted From: Home Planned Operative Procedure/s: pacemaker Additional verifications Anesthesia Reactions: No Hx Blood Transfusions: No Blood Transfusion Reaction: No Airway Assessment C-Spine Mobility Assessed: Yes TMJ Mobility Assessed: Yes Dentition: Good Dentition Neurological Assessment Level of Consciousness: Awake, Alert and Appropriate Anesthesia Plan Anesthesia Risk discussed: Yes Anesthesia Plan: Verified ASA Class: III Anesthesia Type: MAC Assessment & Plan Plan Details Active Problems Reviewed?: Yes Additional Comments: mistakenly charted assessment for this patient Goals & Barriers: Goals Patient verbalizes understanding of disease process/healthy behaviors. Patient to follow plan of care. Education provided.
== END 2023-06-18 15:50 | disposition home or self-care (01) ==
PROVIDERS: PCP Internal Medicine Adolescent Medicine; Visit Provider Internal Medicine
DX: I44.1 Atrioventricular block, second degree (principal); G25.0 Essential tremor; I48.91 Unspecified atrial fibrillation; J44.9 Chronic obstructive pulmonary disease, unspecified; E11.9 Type 2 diabetes mellitus without complications; E78.5 Hyperlipidemia, unspecified; Z79.899 Other long term (current) drug therapy
CPT/HCPCS: 33208; 71045; 80048; 85025; C1785; C1898

== ENCOUNTER 2023-09-09 15:12 | Outpatient (CLI) | payer MEDICARE, OTHER, SELFPAY ==
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
== END 2023-09-09 23:59 ==
LOC: RAD 15:15
PROVIDERS: PCP Internal Medicine Adolescent Medicine; Visit Provider Internal Medicine Adolescent Medicine
DX: M25.512 Pain in left shoulder (principal); R07.81 Pleurodynia
CPT/HCPCS: 71046; 71100; 73030

== ENCOUNTER 2023-09-10 14:04 | Outpatient (CLI) | payer MEDICARE, OTHER, SELFPAY ==
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
== END 2023-09-10 23:59 ==
LOC: RAD 14:05
PROVIDERS: PCP Internal Medicine Adolescent Medicine; Visit Provider Internal Medicine Adolescent Medicine
DX: M25.532 Pain in left wrist (principal); Y92.009 Unspecified place in unspecified non-institutional (private) residence as the place of occurrence of the external cause; W19.XXXA Unspecified fall, initial encounter
CPT/HCPCS: 73110

== ENCOUNTER 2024-02-02 12:16 | Outpatient (CLI) | payer MEDICARE, OTHER, SELFPAY ==
[2024-02-02 12:44] LABS: Basophils # 0.1 K/mm3 (0-0.2); Basophils % 0.7 % (0.1-2.0); Eosinophils # 0.3 K/mm3 (0.0-0.4); Eosinophils % 2.7 % (0.1-12.0); Hematocrit 51.2 % (42.0-52.0); Hemoglobin 15.9 g/dL (14.1-18.0); Lymphocytes # 1.8 K/mm3 (0.7-4.5); Lymphocytes % 17.2 % (10-50); Mean Corpuscular Hemoglobin 30.2 pg (27.0-31.2); Mean Corpuscular Volume 97.3 fl (80-94); Mean Platelet Volume 8.2 fl (7.4-10.4); Monocytes # 0.7 K/mm3 (0.1-1.0); Monocytes % 6.7 % (1.7-9.3); Neutrophils # 7.8 K/mm3 (1.8-7.8); Neutrophils % 72.6 % (37.0-80.0); Platelet Count 229 K/mm3 (142-424); Red Blood Count 5.26 M/mm3 (4.60-6.20); Red Cell Distribution Width 14.4 % (11.5-17.5); White Blood Count 10.7 K/mm3 (4.8-10.8)
[2024-02-02 13:17] LABS: Alanine Aminotransferase 41 U/L (12-78); Albumin Level 3.7 g/dl (3.5-5.0); Alkaline Phosphatase 86 U/L (38-126); Anion Gap 11.1 mEq/L (5-15); Aspartate Amino Transferase 41 U/L (17-59); Bilirubin,Direct 0.1 mg/dl (0.0-0.4); Bilirubin,Indirect 0.7 mg/dL (0.0-0.9); Bilirubin,Total 0.8 mg/dl (0.2-1.3); Bilirubin,Unconjugated 0.7 mg/dL (0.0-1.1); Blood Urea Nitrogen 17 mg/dl (9-20); Calcium 9.1 mg/dl (8.4-10.2); Carbon Dioxide 23 mmol/L (22.0-30.0); Chloride 112 mmol/L (98-107); Chol/HDL Ratio 4.7 (1-3.5); Cholesterol 179 mg/dl (140-200); Estimated Glomerular Filt Rate 59 ml/min (>60); GFR (African American) 71 ML/MIN (>60); Glucose 94 mg/dl (74-100); HDL Cholesterol 38 mg/dl (40-60); Potassium 4.1 mmoL/L (3.5-5.1); Sodium 142 mmol/L (136-145); Total Protein,Serum 6.9 g/dl (6.3-8.2); Triglycerides 316 mg/dl (30-150); VLDL Cholesterol 63 mg/dL (0-40)
[2024-02-02 13:29] LABS: Free T4 (Free Thyroxine) 1.71 ng/dl (0.78-2.19)
[2024-02-02 13:46] LABS: Thyroid Stimulating Hormone 0.03 uIU/mL (0.465-4.68)
[2024-02-12 11:25] LABS: AChR Modulating Ab 22 % (0-45)
[2024-02-24 16:23] LABS: MuSK Antibodies <1.0 U/mL (.)
== END 2024-02-02 23:59 | disposition home or self-care (01) ==
LOC: LAB 12:17
PROVIDERS: PCP Internal Medicine Adolescent Medicine; Visit Provider Physician Assistant
DX: R53.1 Weakness (principal); H53.2 Diplopia; Z95.0 Presence of cardiac pacemaker; I48.91 Unspecified atrial fibrillation; G25.0 Essential tremor; R94.31 Abnormal electrocardiogram [ECG] [EKG]; E11.9 Type 2 diabetes mellitus without complications; J44.9 Chronic obstructive pulmonary disease, unspecified; Z87.891 Personal history of nicotine dependence
CPT/HCPCS: 36415; 80048; 80061; 80076; 83519; 83735; 84439; 84443; 85025; 86255

== ENCOUNTER 2024-04-15 11:42 | Outpatient (CLI) | payer MEDICARE, OTHER, SELFPAY ==
[2024-04-15 12:09] LABS: Basophils # 0.1 K/mm3 (0-0.2); Basophils % 0.9 % (0.1-2.0); Eosinophils # 0.3 K/mm3 (0.0-0.4); Eosinophils % 4.5 % (0.1-12.0); Hematocrit 45.9 % (42.0-52.0); Hemoglobin 14.9 g/dL (14.1-18.0); Lymphocytes # 1.5 K/mm3 (0.7-4.5); Lymphocytes % 20.1 % (10-50); Mean Corpuscular HGB Conc 32.5 g/dL (31.8-35.4); Mean Corpuscular Hemoglobin 29.6 pg (27.0-31.2); Mean Corpuscular Volume 90.9 fl (80-94); Mean Platelet Volume 8.1 fl (7.4-10.4); Monocytes # 0.5 K/mm3 (0.1-1.0); Monocytes % 6.1 % (1.7-9.3); Neutrophils # 5.2 K/mm3 (1.8-7.8); Neutrophils % 68.4 % (37.0-80.0); Platelet Count 253 K/mm3 (142-424); Red Blood Count 5.05 M/mm3 (4.60-6.20); Red Cell Distribution Width 14.3 % (11.5-17.5); White Blood Count 7.6 K/mm3 (4.8-10.8)
[2024-04-15 12:39] LABS: Alanine Aminotransferase 15 U/L (12-78); Albumin Level 3.4 g/dl (3.5-5.0); Alkaline Phosphatase 77 U/L (38-126); Anion Gap 10.3 mEq/L (5-15); Aspartate Amino Transferase 26 U/L (17-59); Bilirubin,Direct 0.3 mg/dl (0.0-0.4); Bilirubin,Indirect 0.4 mg/dL (0.0-0.9); Bilirubin,Total 0.7 mg/dl (0.2-1.3); Bilirubin,Unconjugated 0.4 mg/dL (0.0-1.1); Blood Urea Nitrogen 13 mg/dl (9-20); Carbon Dioxide 26 mmol/L (22.0-30.0); Chloride 112 mmol/L (98-107); Chol/HDL Ratio 5.3 (1-3.5); Cholesterol 181 mg/dl (140-200); Estimated Glomerular Filt Rate 59 ml/min (>60); GFR (African American) 71 ML/MIN (>60); Glucose 82 mg/dl (74-100); HDL Cholesterol 34 mg/dl (40-60); Potassium 4.3 mmoL/L (3.5-5.1); Sodium 144 mmol/L (136-145); Total Protein,Serum 6.1 g/dl (6.3-8.2); Triglycerides 226 mg/dl (30-150); VLDL Cholesterol 45 mg/dL (0-40)
[2024-04-15 12:50] LABS: Direct LDL Cholesterol 101.15 mg/dL (100-129)
[2024-04-15 12:54] LABS: Free T4 (Free Thyroxine) 1.33 ng/dl (0.78-2.19)
[2024-04-15 13:09] LABS: Thyroid Stimulating Hormone 0.03 uIU/mL (0.465-4.68)
== END 2024-04-15 23:59 | disposition home or self-care (01) ==
PROVIDERS: PCP Internal Medicine Adolescent Medicine; Visit Provider Nurse Practitioner
DX: I48.91 Unspecified atrial fibrillation (principal); R94.31 Abnormal electrocardiogram [ECG] [EKG]; E78.00 Pure hypercholesterolemia, unspecified; E11.9 Type 2 diabetes mellitus without complications; R53.1 Weakness
CPT/HCPCS: 36415; 80048; 80061; 80076; 84439; 84443; 85025

== ENCOUNTER 2024-11-05 10:10 | Outpatient (CLI) | payer MEDICARE, OTHER, SELFPAY ==
--- OUTSIDE RECORDS SUMMARY | 2024-11-05 10:13 | XMS_ITS | Encounter Summary ---
Author Name [facility] [facility] Address [address] [place] [address] Support Name Relationship Address Phone BOBBI, SCARLET Next of [place] [address] [place] [address] BOBBI SCARLET Emergency Contact [address] [place] [address] ENRIQUETA MARTINES Next of Kin Unknown [phone] NNAMDI MARTINES Emergency Contact Unknown Insurance Providers: All historical and current Section Date Range: From patient's date of to the date document was created. This section includes the names of all active insurance providers for the patient. Insurance Provider Type of Coverage Plan Name Start of Policy Coverage End of Policy Coverage Group Number Member ID Insurance Provider's Telephone Number Policy Eubanks's Name Patient's Relationship to Policy Eubanks [employer] [facility] RE DODA Jun 16, 2017 DODA [id number] Yumiko MARTINES PATIENT MEDICARE (WNR) MEDICARE (M) PART A Apr 16, 2011 PART A [id number] Yumiko MARTINES PATIENT MEDICARE (WNR) MEDICARE (M) PART B Apr 16, 2011 PART B [id number] [phone] Yumiko MARTINES PATIENT MEDICARE (WNR) MEDICARE (M) PART A Apr 16, 2011 PART A [id number] [phone] Yumiko MARTNIES PATIENT MEDICARE (WNR) MEDICARE (M) PART B Apr 16, 2011 PART B [id number] [facility] [[email or web address] Yumiko MARTINES PATIENT FOR LIFE TRICA RE FOR LIFE Jun 16, 2017 FOR LIFE [id number] Yumiko MARTINES PATIENT Selected Encounter This section includes the information on record at [place] for the Encounter. Date/Time Encounter Type Encounter Description Reason Pro vider Source October 28, 2024 01:14 PM Outpatient Encounter TELEPHONE/MEDICINE IHE Encounter Template Text not used by [facility] Plan of Treatment: Future Appointments (+ 6 months) and Future Tests (+/- 45 days) The Plan of Treatment section includes future care activities for the patient from all [place] treatmentfacilities. This section includes future appointments and future orders which are active, pending or scheduled. Future Appointments This section includes appointments that were scheduled to occur 6 months from the date of the Encounter, up to a maximum of 20 appointments. The data comes from all [place] treatment facilities. Appointment Date/Time Appointment Type Appointme nt Facility Name Dec 31, 2024 02:00 PM AMBULATORY - SURGERY [facility] Social History: Smoking Status (Most current) and Tobacco Use (All prior to encounter date) This section includes the most current, and the historical, smoking and tobacco- related health factors from the [place] facility where the Encounter took place. Current Smoking Status This section includes the most current smoking, or tobacco-related health factor, from the [place] facility where the Encounter took place. Date/Time Current Smoking Status Comment [facility] Mar 02, 2020 11:14 AM VA-TOBACCO FORMER USER [facility] Tobacco Use History This section includes a history of the smoking, or tobacco-related health factors, that were collected on or before the date of the Encounter. The data comes from the [place] facility where the Encounter took place. Date/Time Smoking Status/Tobacco Use Comment F acility Mar 02, 2020 11:14 AM [place]-TOBACCO QUIT 15 YRS OR MORE [facility] Apr 20, 2014 09:01 AM V9 QUIT TOBACCO >7 YEARS AGO [facility] Apr 17, 2010 05:58 PM V9 QUIT TOBACCO >7 YEARS AGO [facility]
--- OUTSIDE RECORDS SUMMARY | 2024-11-05 10:13 | XMS_ITS | Continuity of Care Document ---
Author Name [facility] Organization [facility] Care Team Providers Care Heating Element Repairer Name Role Phone [facility] Unavailable Unavailable Problems Combined list of problems from Department of Defense and Veterans Affairs facilities. It does not include entries that were removed or entered in error. Problem Status Onset Date Problem Type Date of Resolution Comments Source visit for: administrative purpose Active Condition [facility] visit for: occupational health / fitness exam Active Condition [facility] visit for: ears / hearing exam Active Condition [facility] Adjustment disorder with mixed emotional features Active Condition [facility] Anxiety disorder Active Condition [facility] N Diabetes mellitus Active [facility] Gastroesophageal reflux disease Active Condition [facility] N Hearing loss Active Condition [facility] N Hyperlipidemia Active Condition [place] [facility] N Hypertension Active Condition [facility] N Hypertension Active Condition [facility] N Hypothyroidism Active Condition [place] [facility] N 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 [facility] N Simple obesity Active Condition [place] [facility] N Dentures * (ICD-9-CM V52.3) Inactive Condition 04/20/2014 [facility] N Dermatitis * (ICD-9-CM 692.9) Inactive Condition 04/20/2014 [place] [facility] N Diagnosis: ICD-10-CM E11.40 Type 2 diabetes mellitus with diabetic neuropathy, unsp [facility] Diagnosis: ICD-10-CM E11.9 Type 2 diabetes mellitus without complications Active Diagnosis [facility] N Diagnosis: ICD-10-CM B35.1 Tinea unguium Active Diagnosis [facility] N Diagnosis: ICD-10-CM E11.42 Type 2 diabetes mellitus with diabetic polyneuropathy Active Diagnosis [facility] Medications Combined list of outpatient medications from Department of Defense and Veterans Affairs facilities.Medications provided include 1) outpatient medications from the last 15 months, and 2) patient-reported medications. Medication Details Route Status Patient Instructions Prescription Expires Prescription Number Last Dispense Date Ordering Provider Order Date Order Qty Source AREXVY (respirator y syncytial virus vacc. antigen/AS0 1E adjuvant/PF ), 120MCG/0.5, KIT, INTRAMUSC, GLAXOSMITHK LINE, 1 ea. KIT Active [id number] 4 2023 1 Pharmac y Data Transac tion Service Facilit y ASPIRIN 81MG TAB,EC TAKE ONE TABLET BY MOUTH DAILY ORAL ACTIVE BRADLEY BLACKMAN W 2009 [place] [facility] CARVEDILOL TAB TAKE BY MOUTH TWICE A DAY ORAL ACTIVE HE,LACHO ROSALES R 2019 [place] [facility] CETIRIZINE HCL 10MG TAB TAKE ONE TABLET BY MOUTH DAILY ORAL ACTIVE HE,JAY UR N 2013 [place] [facility] CLOBETASOL PROPIONATE 0.05% SOLN,TOP APPLY SMALL AMOUNT TO AFFECTED AREA TWICE A DAY TOPICA L ACTIVE BRADLEY BLACKMAN W 2009 [place] [facility] DICLOFENAC SODIUM (diclofenac sodium), 1 %, GEL (GRAM), TOPICAL, [employer] 100 g TUBE Active [id number] 2023 600 Pharmac y Data Transac tion Service Facilit y ESCITALOPRA M TAB,ORAL TAKE BY MOUTH DAILY ORAL ACTIVE HE,LACHO ROSALES R 2019 [place] [facility] FUROSEMIDE 40MG TAB TAKE ONE TABLET BY MOUTH QD ORAL ACTIVE HE,JAY UR N 2013 [place] [facility] GABAPENTIN (gabapentin ), 300 MG, CAPSULE, ORAL, XLCARE PHARMACE, 270 ea. BOTTLE Active [id number] 4 2023 180 Pharmac y Data Transac tion Service Facilit y GABAPENTIN TAB TAKE BY MOUTH ORAL ACTIVE HE,LACHO ROSALES R 2019 [place] [facility] LEVOTHYROXI NE NA 175MCG TAB (SYNTHROID) TAKE ONE TABLET BY MOUTH DAILY ORAL ACTIVE HEMISTY PARKER N 2013 [place] [facility] LOVASTATIN (lovastatin ), 40 MG, TABLET, ORAL, [employer] 1000 ea. BOTTLE Active [id number] 2023 90 Pharmac y Data Transac tion Service Facilit y LOVASTATIN TAB TAKE BY MOUTH AT BEDTIME ORAL ACTIVE HELACHO PARKER EK R 2019 [place] [facility] MEMANTINE HCL (memantine HCl), 10 MG, TABLET, ORAL, VIONA PHARMACEU, 60 ea. BOTTLE Active [id number] 4 2023 180 Pharmac y Data Transac tion Service Facilit y MEMANTINE HCL (memantine HCl), 5 MG, TABLET, ORAL, AMNEAL PHARMACE, 60 ea. BOTTLE Active [id number] 2023 60 Pharmac y Data Transac tion Service Facilit y MEMANTINE HCL (memantine HCl), 5 MG, TABLET, ORAL, VIONA PHARMACEU, 60 ea. BOTTLE Active [id number] 4 2023 180 Pharmac y Data Transac tion Service Facilit y METFORMIN TAB,ORAL TAKE BY MOUTH ORAL ACTIVE NERILACHO EK R 2019 [place] [facility] PROPRANOLOL HCL (propranolo l HCl), 60 MG, TABLET, ORAL, [employer] 100 ea. BOTTLE Cancele d [id number] : 2023 0 Pharmac y Data Transac tion Service Facilit y PROPRANOLOL HCL ER (propranolo l HCl), 60 MG, CAP SA 24H, ORAL, [employer], 100 ea. BOTTLE Cancele d [id number] : 2023 0 Pharmac y Data Transac tion Service Facilit y PROPRANOLOL HCL ER (propranolo l HCl), 60 MG, CAP SA 24H, ORAL, [employer], 100 ea. BOTTLE Active [id number] 4 2023 90 Pharmac y Data Transac tion Service Facilit y SHINGRIX (varicella- zoster virus glycoprotei n E,rec/AS01B adjuvant/PF ), 50 MCG/0.5, KIT, INTRAMUSC, GLAXOSMITHK LINE, 1 ea. KIT Active [id number] 4 2023 1 Pharmac y Data Transac tion Service Facilit y TOPIRAMATE (TOPIRAMATE ), 25 MG, TABLET, ORAL, [employer] 60 ea. BOTTLE Cancele d [id number] : 2023 0 Pharmac y Data Transac tion Service Facilit y TOPIRAMATE (TOPIRAMATE ), 25 MG, TABLET, ORAL, [employer] 60 ea. BOTTLE Cancele d [id number] : 2023 0 Pharmac y Data Transac tion Service Facilit y TOPIRAMATE (TOPIRAMATE ), 50 MG, TABLET, ORAL, [employer] 60 ea. BOTTLE Cancele d [id number] : 2023 0 Pharmac y Data Transac tion Service Facilit y TOPIRAMATE (TOPIRAMATE ), 50 MG, TABLET, ORAL, [employer] 60 ea. BOTTLE Active [id number] 4 2023 120 Pharmac y Data Transac tion Service Facilit y TOPIRAMATE (TOPIRAMATE ), 50 MG, TABLET, ORAL, [employer] 60 ea. BOTTLE Active [id number] 4 2023 120 Pharmac y Data Transac tion Service Facilit y TOPIRAMATE (TOPIRAMATE ), 50 MG, TABLET, ORAL, [employer] 60 ea. BOTTLE Active [id number] 4 2023 120 Pharmac y Data Transac tion Service Facilit y TRAZODONE TAB TAKE BY MOUTH ORAL ACTIVE LACHO HE 2019 [place] [facility] Allergies, Adverse Reactions, Alerts Combined list of allergies from Department of Defense and Veterans Affairs facilities. It does not include entries that were removed or entered in error. Substance Category Reaction Severity Reaction type Status Date Reported Comments Source No Known Allergies Drug allergy (disorder) active 12/31/2005 [facility] [place] Immunizations Combined list of available immunizations from the Department of Defense and Veterans Affairs facilities. Immunization Series Date Given Administered By Site Reaction Lot Number CVX Code Drug Craft Demonstrator Status Comments Source zoster recombinant 2023 () Not Given zoster recombina nt [facility] [id number] (HISTORICAL) 2013 33 complet ed [place] [facility] PNEUMOCOCCAL, UNSPECIFIED FORMULATION 2013 109 complet ed [place] [facility] INFLUENZA A & B (HISTORICAL) 2013 88 complet ed [place] [facility] TD(ADULT) UNSPECIFIED FORMULATION 2011 139 complet ed [place] [facility] INFLUENZA A & B (HISTORICAL) 2009 88 complet ed [place] [facility] TD(ADULT) UNSPECIFIED FORMULATION 2003 139 complet ed [place] [facility] Encounters Combined list of: 1) Encounters from Department of Veterans Affairs facilities going backup to the last 18 months, not all VA inpatient encounters are included; 2) Encounters from the Department of Defense facilities going backup to 280 months. Location Location Details Encounter Type Encounter Number Reason For Visit Attending Provider ADM Date DC Date Status Disposition Source [place], [place] OUTPATIENT [id number] hearing exam LILIA MARLEY 10/10 Released w/o Limitations [place]) OUTPATIENT [id number] annual PE WILLIE GARIBAY 10/10 Released w/o Limitations Am[facility] MENDOZA [place] Amaris [place]) OUTPATIENT [id number] AA&E PIOTR MEDRANO 02/27 Released w/o Limitations Am[place]END[place] Am[place]END[place] OUTPATIENT [id number] ANGÉLICA Hoffman 11/21 Released w/o Limitations [place] [place] [facility] O/P EST LOW 20 MIN [id number] Diagnos is: ICD-10- CM E11.40 Type 2 diabete s mellitu s with diabeti c neuropa thy, unsp RODEUGENIO,MAEVE AN S 10/12 [place] [facility] O/P EST LOW 20 MIN [id number] Diagnos is: ICD-10- CM E11.42 Type 2 diabete s mellitu s with diabeti c polyneu ropathy HASLER,PHI LLIP W 02/08 [place] [facility] OFF/OP EST MAY X REQ PHY/QHP [id number] Diagnos is: ICD-10- CM B35.1 Tinea unguium KEIRY,PHI LLIP W 02/26 [place] [facility] DIAB SHOE FOR DENSITY INSERT [id number] Diagnos is: ICD-10- CM E11.9 Type 2 diabete s mellitu s without complic ations PAUL,CAN DACE L 03/16 [place] [facility] DIAB SHOE FOR DENSITY INSERT [id number] Diagnos is: ICD-10- CM E11.9 Type 2 diabete s mellitu s without complic ations PAULCAN DACE L 04/01 [place] [facility] Outpatient Encounter [id number] 06/14 [place] Outpatient Encounter [id number] 07/23 [place] O/P EST LOW 20 MIN [id number] Diagnos is: ICD-10- CM E11.40 Type 2 diabete s mellitu s with diabeti c neuropa thy, unsp FOLLMER,AM Y S 10/01 [place] [facility] Outpatient Encounter [id number] 10/28 [place] [facility] Outpatient Encounter [id number] 10/28 [place] [facility] Outpatient Encounter [id number] 10/28 [place] [facility] Procedures Combined list of: 1) Procedures from Department of [facility] Affairs facilities going back up to thelast 18 months, not all [place] non-surgical procedures are included; 2) All procedures from the Department of Defense facilities. Procedure Procedure Type Code Date Perfomer Comments Sourc e SPECIAL REPORTS SUCH INSURANCE FORMS, MORE THAN THE INFORMATION CONVEYED IN THE USUAL MEDICAL COMMUNICATIONS OR STANDARD REPORTING FORM 12/31/2005 DoD VISUAL FIELD EXAM,UNILAT/BI,INTERP&REP;EXT EXM(EG,GOLDMANN VIS FLD,AT LEAST 3 ISOP PLOT&STAT DET W/IN RODNEY 30DEG/QUANT,AUTO THRSH OLYA,OCT G-1,,HUMP VIS FLD ANAL FULL THRSH 30-2,24-2, OR 60-2) 10/14/2005 [place] SCREENING TEST, PURE TONE, AIR ONLY 10/14/2005 DoD SCREENING TEST, PURE TONE, AIR ONLY 10/22/2004 DoD SCREENING TEST, PURE TONE, AIR ONLY 10/11/2004 DoD SCREENING TEST, PURE TONE, AIR ONLY 09/26/2004 DoD VISUAL FIELD EXAM,UNILAT/BI,INTERP&REP;EXT EXM(EG,GOLDMANN VIS FLD,AT LEAST 3 ISOP PLOT&STAT DET W/IN RODNEY 30DEG/QUANT,AUTO THRSH OLYA,OCT G-1,42,HUMP VIS FLD ANAL FULL THRSH 30-2,24-2, OR 60-2) 09/26/2004 Do D SPECIAL REPORTS SUCH INSURANCE FORMS, MORE THAN THE INFORMATION CONVEYED IN THE USUAL MEDICAL COMMUNICATIONS OR STANDARD REPORTING FORM 01/24/2004 DoD SPECIAL REPORTS SUCH INSURANCE FORMS, MORE THAN THE INFORMATION CONVEYED IN THE USUAL MEDICAL COMMUNICATIONS OR STANDARD REPORTING FORM 01/10/2004 DoD SPECIAL REPORTS SUCH INSURANCE FORMS, MORE THAN THE INFORMATION CONVEYED IN THE USUAL MEDICAL COMMUNICATIONS OR STANDARD REPORTING FORM 12/28/2003 DoD SPECIAL REPORTS SUCH INSURANCE FORMS, MORE THAN THE INFORMATION CONVEYED IN THE USUAL MEDICAL COMMUNICATIONS OR STANDARD REPORTING FORM 09/26/2003 DoD REMOVAL OF SUTURES UNDER ANESTHESIA (OTHER THAN LOCAL), SAME SURGEON 09/19/2003 DoD SIMPLE REPAIR OF SUPERFICIAL WOUNDS OF SCALP, NECK, AXILLAE, EXTERNAL GENITALIA, TRUNK AND/OR EXTREMITIES (INCLUDING HANDS AND FEET); 7.6 CM TO 12.5 CM 09/06/2003 DoD SPECIAL REPORTS SUCH INSURANCE FORMS, MORE THAN THE INFORMATION CONVEYED IN THE USUAL MEDICAL COMMUNICATIONS OR STANDARD REPORTING FORM 12/21/2002 DoD VISUAL FIELD EXAM,UNILAT/BI,INTERP&REP;EXT EXM(EG,GOLDMANN VIS FLD,AT LEAST 3 ISOP PLOT&STAT DET W/IN RODNEY 30DEG/QUANT,AUTO THRSH OLYA,OCT G-1,32/42,HUMP VIS FLD ANAL FULL THRSH 30-2,24-2, OR 30/60-2) 09/15/2002 Do D DETERMINATION OF VENOUS PRESSURE 08/09/2002 DoD VISUAL FIELD EXAM,UNILAT/BI,INTERP&REP;EXT EXM(EG,GOLDMANN VIS FLD,AT LEAST 3 ISOP PLOT&STAT DET W/IN RODNEY 30DEG/QUANT,AUTO THRSH OLYA,OCT G-1,32/42,HUMP VIS FLD ANAL FULL THRSH 30-2,24-2, OR 30/60-2) 09/15/2001 Do D DETERMINATION OF VENOUS PRESSURE 03/25/2001 DoD DETERMINATION OF VENOUS PRESSURE 03/09/2001 DoD SCREENING TEST, PURE TONE, AIR ONLY 10/08/2000 DoD VISUAL FIELD EXAM,UNILAT/BI,INTERP&REP;EXT EXM(EG,GOLDMANN VIS FLD,AT LEAST 3 ISOP PLOT&STAT DET W/IN RODNEY 30DEG/QUANT,AUTO THRSH OLYA,OCT G-1,32/42,HUMP VIS FLD ANAL FULL THRSH 30-2,24-2, OR 30/60-2) 09/24/2000 Do D VISUAL FIELD EXAM,UNILAT/BI,INTERP&REP;EXT EXM(EG,GOLDMANN VIS FLD,AT LEAST 3 ISOP PLOT&STAT DET W/IN RODNEY 30DEG/QUANT,AUTO THRSH OLYA,OCT G-1,32/42,HUMP VIS FLD ANAL FULL THRSH 30-2,24-2, OR 3060-2) 09/17/2000 Do D DETERMINATION OF VENOUS PRESSURE 09/09/2000 [facility] AMBULATORY BLOOD PRESSURE MONITORING, UTILIZING REPORT-GENERATING SOFTWARE, AUTOMATED, WORN CONTINUOUSLY FOR 24 HOURS OR LONGER; INCLUDING RECORDING, SCANNING ANALYSIS, INTERPRETATION AND REPORT 08/20/2000 [facility] DETERMINATION OF VENOUS PRESSURE 07/07/2000 [facility] DETERMINATION OF VENOUS PRESSURE 06/23/2000 [facility] DETERMINATION OF VENOUS PRESSURE 06/04/2000 [facility] DETERMINATION OF VENOUS PRESSURE 04/14/2000 [facility] SCREENING TEST, PURE TONE, AIR ONLY 10/02/1999 [facility] Social History Combined list of available smoking, tobacco, and other social history from Department of Defense and Veterans Affairs facilities. Social History Type Response Date Comment Sourc e Tobacco smoking status NHIS VA-TOBACCO FORMER USER 03/02/2020 [facility] History of tobacco use VA-TOBACCO QUIT 15 YRS OR MORE 03/02/2020 [facility] History of tobacco use V9 QUIT TOBACCO >7 YEARS AGO 04/20/2014 [facility] History of tobacco use V9 QUIT TOBACCO >7 YEARS AGO 04/17/2010 [facility] This section is an empty social history section. [facility] Plan of Care List of future care activities from Department of [facility] Affairs facilities. Additional future care activities may be listed in the Assessment and Plan section. Date/Time Care Activity Care Activity Detail Facili ty 12/31/2024 AMBULATORY - SURGERY AMBULATORY - SURGERY [facility]
--- OUTSIDE RECORDS SUMMARY | 2024-11-05 10:13 | XMS_ITS | Encounter Summary ---
Author Name [facility] [place] Address [address] [place] [address] Support Name Relationship Address Phone BOBBI, SCARLET Next of [place] [address] [place] [address] BOBBI SCARLET Emergency Contact [address] [place] [address] ENRIQUETA MARTINES Next of Kin Unknown NNAMDI MARTINES Emergency Contact Unknown [phone] Insurance Providers: All historical and current Section [...] TRICA RE DODA Jun 16, 2017 DODA [id number] Yumiko MARTINES PATIENT MEDICARE (WNR) MEDICARE (M) PART A Apr 16, 2011 PART A [id number] Yumiko MARTINES PATIENT MEDICARE (WNR) MEDICARE (M) PART B Apr 16, 2011 PART B [id number] [id number] Yumiko MARTINES PATIENT MEDICARE (WNR) MEDICARE (M) PART A Apr 16, 2011 PART A [id number] Yumiko MARTINES PATIENT MEDICARE (WNR) MEDICARE (M) PART B Apr 16, 2011 PART B [id number] [facility] Yumiko MARTINES PATIENT FOR LIFE TRICA RE FOR LIFE Jun 16, 2017 FOR LIFE [id number] Yumiko MARTINES PATIENT Selected Encounter This section includes the information on record at [place] for the Encounter. Date/Time Encounter Type Encounter Description Reason Pro vider Source October 28, 2024 02:09 PM Outpatient Encounter TELEPHONE/MEDICINE IHE Encounter Template Text not used by [facility] Plan of Treatment: Future Appointments (+ 6 months) and Future Tests (+/- 45 days) The Plan of Treatment section includes future care activities for the [facility] [place] [facility] This section includes future appointments and future orders which are active, pending or scheduled. Future Appointments This section includes appointments that were scheduled to occur 6 months from the date of the Encounter, up to a maximum of 20 appointments. The data comes from all [place] treatment facilities. Appointment Date/Time Appointment Type Appointme nt Facility Name Dec 31, 2024 02:00 PM AMBULATORY - SURGERY [facility] Social History: Smoking Status (Most current) and Tobacco Use (All prior to encounter date) This section includes the most current, and the historical, smoking and tobacco- related health factors from the [place] facility where the Encounter took place. Current Smoking Status This section includes the most current smoking, or tobacco-related health factor, from the [place] facility where the Encounter took place. Date/Time Current Smoking Status Comment Marshall ity Mar 02, 2020 11:14 AM VA-TOBACCO FORMER USER [facility] Tobacco Use History This section includes a history of the smoking, or tobacco-related health factors, that were collected on or before the date of the Encounter. The data comes from the [place] facility where the Encounter took place. Date/Time Smoking Status/Tobacco Use Comment F acility Mar 02, 2020 11:14 AM VA-TOBACCO QUIT 15 YRS OR MORE [facility] Apr 20, 2014 09:01 AM V9 QUIT TOBACCO >7 YEARS AGO [facility] Apr 17, 2010 05:58 PM V9 QUIT TOBACCO >7 YEARS AGO [facility] Encounter Notes: All associated encounter notes This section contains the clinical notes associated to the Encounter. Date/Time Encounter Note(s) Provider Source October 28, 2024 02:09 PM ADMINISTRATIVE NOT E: LOCAL TITLE: V9 [facility] ADMINISTRATIVE NOTE STANDARD TITLE: ADMINISTRATIVE NOTE DATE OF NOTE: OCTOBER 28, 2024@14:09 ENTRY DATE: OCTOBER 28, 2024@14:09:42 AUTHOR: LINDSEY KAUFMAN COSIGNER: URGENCY: STATUS: COMPLETED Toxic Exposure Screening: Attempts to contact [place]/caregiver to perform TRISTAN: 1 Contact type attempted: Telephone, unable to leave message (I called number listed in CPRS two times back to back and neither time was provided a VM option. The first time I called VM seemed to pecan picker but then ended prior to giving me a chance to leave a message. The second time I called it sounded as if someone picked up the phone (I heard talking in the background) but no one ever said stefan. /homa/ LINDSEY KAUFMAN PHYSICIAN ARCHITECTURAL INTERN Signed: 10/28/2024 14:15 LINDSEY KAUFMAN-[facility]
--- OUTSIDE RECORDS SUMMARY | 2024-11-05 10:13 | XMS_ITS | Encounter Summary ---
Author Name [facility] [place] Address [address] [place] [address] Support Name Relationship Address Phone BOBBI, SCARLET Next of Kin [address] [place] [address] BOBBI COBYAbdi Emergency Contact [address] [place] [address] ENRIQUETA MARTINES Next of Kin Unknown NNAMDI MARTINES Emergency Contact Unknown Insurance Providers: [...] TRICA RE DODA Jun 16, 2017 DODA [id number] [facility] [place] [phone] Yumiko MARTINES PATIENT MEDICARE (WNR) MEDICARE (M) PART A Apr 16, 2011 PART A [id number] Yumiko MARTINES PATIENT MEDICARE (WNR) MEDICARE (M) PART B Apr 16, 2011 PART B [id number] Yumiko MARTINES PATIENT MEDICARE (WNR) MEDICARE (M) PART A Apr 16, 2011 PART A [id number] Yumiko MARTINES PATIENT MEDICARE (WNR) MEDICARE (M) PART B Apr 16, 2011 PART B [id number] Yumiko MARTINES PATIENT FOR LIFE TRICA RE FOR LIFE Jun 16, 2017 FOR LIFE [id number] Yumiko MARTINES PATIENT Selected Encounter This section includes the information on record at [place] for the Encounter. Date/Time Encounter Type Encounter Description Reason Pro vider Source October 28, 2024 12:00 AM Outpatient Encounter EVENT (HISTORICAL) IHE Encounter Template Text not used by [place] Plan of Treatment: Future Appointments (+ 6 months) and Future Tests (+/- 45 days) The Plan of Treatment section includes future care activities for the patient from all [place] treatmentfacilities. This section includes future appointments and future orders which are active, pending or scheduled. Future Appointments This section includes appointments that were scheduled to occur 6 months from the date of the Encounter, up to a maximum of 20 appointments. The data comes from all [place] treatment facilities. Appointment Date/Time Appointment Type Appointme nt Facility Name Dec 31, 2024 02:00 PM AMBULATORY - SURGERY [facility] Social History: Smoking Status (Most current) and Tobacco Use (All prior to encounter date) This section includes the most current, and the historical, smoking and tobacco- related health factors from the [place] facility where the Encounter took place. Current Smoking Status This section includes the most current smoking, or tobacco-related health factor, from the [place] facility where the Encounter took place. Date/Time Current Smoking Status Comment Facil ity Mar 02, 2020 11:14 AM VA-TOBACCO FORMER USER [facility] Tobacco Use History This section includes a history of the smoking, or tobacco-related health factors, that were collected on or before the date of the Encounter. The data comes from the [place] facility where the Encounter took place. Date/Time Smoking Status/Tobacco Use Comment F acility Mar 02, 2020 11:14 AM [place]-TO[place] QUIT 15 YRS OR MORE [facility] Apr 20, 2014 09:01 AM V9 QUIT TOBACCO >7 YEARS AGO [facility] Apr 17, 2010 05:58 PM V9 QUIT TOBACCO >7 YEARS AGO [facility]
--- OUTSIDE RECORDS SUMMARY | 2024-11-05 10:13 | XMS_ITS | Data Portability ---
Author Organization [facility] & DENZEL Woodall ADMIN Address [address] [place] [address] Care Team Providers Care Field Sales Specialist Name Role Phone LINDSEY NICOLE Referring Provider [phone] Assessment No assessment recorded. Plan of Treatment Reminders Order Date Submit Date Provider Last Modified By Organization Details Last Modified Time Details Appointments None recorded. Lab urinalysis , dipstick [address], [address], 3 11:14:34 Referral None recorded. Procedures bladder scan (PROC) [address], [address], 3 09:34:16 Surgeries None recorded. Imaging None recorded. Medication Orders clotrimazo le-betamet hasone 1 %-0.05 % topical cream 2022 023 [id number], [address] [place], [address], 3 09:31:54 Patient TargetsNo targets recorded. Patient InstructionsNo instructions recorded. Reason for Referral None Reported. Results Created Date Observation Date Name Description Value Unit Range Abnormal Flag Note LastModifiedBy Organization Detail LastModifiedTime 05/30/2005/30/2023 bladd er scan (PROC ) Calculated Residual Urine: 71 Not Available [address], [address], 05/30/2023 09:34:03 05/30/20 23 05/30/2023 urina lysis , dipst ick Leukocytes (reference range) trace Not Available [address], [address], 05/30/2023 09:23:37 05/30/20 23 05/30/2023 urina lysis , dipst ick Nitrite (reference range:) negati ve Not Available [address], [address], 05/30/2023 09:23:37 05/30/20 23 05/30/2023 urina lysis , dipst ick Urobilinogen (reference range) 0.2 Not Available [address], [address], 05/30/2023 09:23:37 05/30/20 23 05/30/2023 urina lysis , dipst ick Protein (reference range) 30 Not Available [address], [address], 05/30/2023 09:23:37 05/30/20 23 05/30/2023 urina lysis , dipst ick pH (reference range 5-8.5) 6.0 Not Available [address], [address], 05/30/2023 09:23:37 05/30/20 23 05/30/2023 urina lysis , dipst ick Blood (reference range:) hemoly zed: Trace Not Available [address], [address], 05/30/2023 09:23:37 05/30/20 23 05/30/2023 urina lysis , dipst ick Specific Lismore (reference range) 1.030 Not Available [address], [address], 05/30/2023 09:23:37 05/30/20 23 05/30/2023 urina lysis , dipst ick Ketone (reference range) negati ve Not Available [address], [address], 05/30/2023 09:23:37 05/30/20 23 05/30/2023 urina lysis , dipst ick Bilirubin (reference range) small Not Available [address], [address], 05/30/2023 09:23:37 05/30/20 23 05/30/2023 urina lysis , dipst ick Glucose (reference range) negati ve Not Available [address], [address], 05/30/2023 09:23:37 Result Notes None recorded. Problems Name Problem SNOMED Code Status Onset Date Resolution Date Notes Provider Name and Address Organization Details Recorded Time Heart disease 28992089 Active 023 Jose Daniel berry, RAD - [facility] - [place] & [place] 3 08:53:24 Seasonal allergy 651560413 Active 023 Jose Daniel berry, RAD - [facility] - [place] & [place] 3 08:53:35 Irregular heart beat 836898773 Active 023 Jose Daniel berry, [place] - [facility] - [place] & [place] 3 08:53:45 Arthritis 1287621 Active 023 Jose Daniel berry, [place] - [facility] - [place] & [place] 3 08:53:52 Anxiety 67876054 Active 023 Jose Daniel berry, RAD - [facility] - [place] & [place] 3 08:54:00 Denture present 706250694 Active 023 Jose Daniel berry, [place] - [facility] - [place] & [place] 08:54:07 Problem Notes None recorded. Procedures Surgical History Date Name Laterality Status Provider Name and Address Organization Details Recorded Time Vasectomy completed Jose Daniel LEROY [facility] 05/30/2023 08:55:31 procedure on penis completed [facility] & [place] 05/30/2023 08:56:18 Imaging Results None recorded. Procedure Notes None recorded. Medical Equipment None Reported. Allergies No known drug allergies Medications Name Sig Start Date Stop Date Status Note LastModified by Organization Details LastModified Time carvedilol 12.5 mg tablet 05/30 completed Not Available Not Available Not Available trazodone 50 mg tablet active Not Available Not Available Not Available cetirizine 10 mg tablet TAKE 1 TABLET BY MOUTH EVERY DAY 05/30 completed Not Available Not Available Not Available Synthroid 150 mcg tablet active Not Available Not Available Not Available lovastatin 40 mg tablet active Not Available Not Available Not Available propranolol ER 60 mg capsule,24 hr,extended release TAKE 1 CAPSULE BY MOUTH EVERY DAY active Not Available Not Available No t Available ofloxacin 0.3 % ear drops INSTILL 10 DROPS IN EACH AFFECTED EAR EVERY DAY FOR 7 DAYS 05/30 completed Not Available Not Available Not Available amoxicillin 875 mg tablet TAKE 1 TABLET BY MOUTH EVERY 12 HOURS FOR 10 DAYS 05/30 completed Not Available Not Available Not Available hydrocortis one 1 % topical cream APPLY TO AFFECTED AREA ON EXTERNAL EAR EVERY DAY FOR 7 DAYS 05/30 completed Not Available Not Available Not Available clotrimazol e-betametha sone 1 %-0.05 % topical cream APPLY TO THE AFFECTED AND SURROUNDI NG AREAS OF SKIN BY TOPICAL ROUTE 2 TIMES PER DAY IN THE MORNING AND EVENING FOR 2 WEEKS active Not Available Not Available No t Available gabapentin 300 mg capsule active Not Available Not Available Not Available tobramycin 0.3 %-dexametha sone 0.1 % eye drops,suspe nsion INSTILL 1 DROP INTO EACH AFFECTED EYES FOUR TIMES DAILY FOR 1 WEEK, THEN TWICE DAILY FOR 1 WEEK 05/30 completed Not Available Not Available Not Available escitalopra m 10 mg tablet active Not Available Not Available Not Available ciprofloxac in 0.3 %-dexametha sone 0.1 % ear drops,suspe nsion INSTILL 4 DROPS IN AFFECTED EAR TWICE A DAY FOR 10 DAYS 05/30 completed Not Available Not Available Not Available Anoro Ellipta 62.5 mcg-25 mcg/actuati on powder for inhalation active Not Available Not Available N ot Available Xiidra 5 % eye drops in a dropperette 05/30 completed Not Available Not Available Not Available Vitals Date Recorded Body height Body mass index (BMI) Body weight Body temperature Provider Name and Address Organization Details Last Updated DateTime 05/30/2023 180.34 cm 31.1 kg/m2 283432.1 g 97.5 [degF] Jose Daniel Lu [facility] & [place] 05/30/2023 08:51:19 Social History None recorded. Functional Status Question Answer Note LastModified by Organization D etails LastModified Time What is your level of alcohol consumption? None [email or web address] Information not available 05/30/2023 Mental Status None recorded. Family History Relationship Description Onset Age of this Age Resolved Age Notes LastModified by Organization Details LastModified Time Mother Chronic obstructive pulmonary disease dec [email or web address] Not available 2022 08:54:20 Brother Heart disease dec [email or web address] Not available 2022 08:54:40 Brother Chronic obstructive pulmonary disease dec Not available 2022 08:54:52 Father Heart disease dec [email or web address] Not available 2022 08:55:11 Medical History No medical history recorded. Past Encounters Encounter ID Performer Location Encounter Start Date Encounter Closed Date Diagnosis/Indication Diagnosis SNOMED-CT Code Diagnosis ICD10 Code Diagnosis Note [id number] Iron Varela Jr, MD [facility] Urology [address] [address] 05/30/2023 08:48:59 05/30/2023 09:22:51 Balanitis 36578221 N48.1 Patient with history of balanitis now with a recurrence . Prescripti on for clotrimazo le cream sent in. Acquired phimosis 850291 009 N47.1 patient with history of phimosis. He is undergone a dorsal slit procedure in the past. The foreskin opening is wide enough to see the meatus but can not be retracted. He does have difficulty directing his stream and sits to void. We discussed dorsal slit procedure again but he does not desire that at this time. Dysuria 24105930 R30.0 patient with dysuria but his urinalysis is within normal limits. I believe the burning is coming from the penile inflammati on. Health Concerns Section Related Observation LastModified by Organization Detai ls LastModified Time None Recorded Concern Status LastModified by Organization Details LastModified Time None Recorded Advance Directives Directive None Recorded Payers Insurance Date Sequence Insurance Name Policy Number Policy [place] Covered Member ID [place] Member ID Guarantor Name 01/03/2024 2 [facility] () Bhavin Martinez Sara [id number] 01/03/2024 1 MEDICARE-[place] (MEDICARE) Bhavin Martinez Sara [id number] Notes Date Note Type Note Provider Name and Address Organization Details Recorded Time 05/30/2023 text/html Patient is a 78-year-old white male with a history balanitis. He returns today due to a recurrence of the balanitis. He is undergone a previous dorsal slit procedure by Dr. Alberto. He has an old prescription for clotrimazole cream that he is using with improvement. Bladder scan today indicates he is emptying well with a 71 cc residual. Iron Varela Jr, MD [address] [place] [address], [address], [place], [address], [facility] [place] & [place] 05/30/2023 09:34:33
--- NOTE | 2024-11-05 10:16 | CA_ITS ---
APPROVED REPORT EXAM: Comprehensive 2D, Doppler, and color-flow Echocardiogram [facility] All Round: Katlyn Powers RVT Ht: 5 ft 11 in Wt: 209lbs BSA: 2.15 BP: 107/66 mmHg Indications: ABN EKG,A-FIB,RBBB,PACER,COPD,CP,DM,EX SMOKER LIMITED WINDOWS VERY TDS 2D Dimensions LA Volume 25.60 mL LA Volume Index 11.91 mL/m2 (M/F) 16-34 M-Mode Dimensions RVDd 3.39 cm (0.9-2.6) LA Diam 4.02 cm (1.9-4.0) LVDd 5.69 cm (3.5-5.7) LVDs 3.78 cm (3.5-5.7) IVSd 0.79 cm (0.6-1.1) PWd 0.88 cm (0.6-1.1) EF (Teich) 61.60% FS 33.60% EDV (Teich) 159.40 mL ESV (Teich) 61.20 mL LV Diastology E Decel Time 310 (160-240 msec) E/A Ratio 0.6 Aortic Valve AO Peak GR. 1.80 mmHg Mitral Valve MV E Max Dharmesh. 43.0 (40-130 cm/s) MV A Velocity 69.0 (40-130 cm/s) E/A Ratio 0.63 MV PHT 91.0 ms Left Ventricle The left ventricle is normal size. The left ventricular systolic function is normal. The left ventricular ejection fraction is within the normal range. There is increased LV wall thickness. Diastolic function is indeterminate. Regional wall motion cannot be accurately evaluated in the setting of technically difficult study. LVEF is 55%. Right Ventricle The right ventricle is not very well-visualized, but grossly appears likely moderately dilated. Right ventricle is mildly hypokinetic. Atria The left atrium size is normal. The right atrium is mildly dilated. There is no Doppler evidence of interatrial shunt. Aortic Valve Aortic valve leaflets are not well-visualized. There is no aortic valvular stenosis. No aortic regurgitation is present. Mitral Valve The mitral valve is normal in structure. No evidence of mitral valve stenosis. Trace mitral regurgitation. Tricuspid Valve The tricuspid valve leaflets are not well-visualized. Trace tricuspid regurgitation. There is insufficient TR jet to estimate RVSP. Pulmonic Valve The pulmonic valve is not well-visualized. Great Vessels The aortic root is not well-visualized. The IVC is not well-visualized. Pericardium There is no pericardial effusion. Other Information Study Quality: Technically Difficult Conclusion Technically very difficult study due to poor acoustic windows. Grossly, normal LV systolic function. The RV is difficult to visualize, but grossly appears moderately dilated with mild reduction in RV function. RA dilation. No significant valvular stenosis or regurgitation in the visualized valves. Electronically signed by : Sylwia Tirado MD 11/14/2024 21:03:39
== END 2024-11-05 23:59 | disposition home or self-care (01) ==
LOC: RT 10:12
PROVIDERS: PCP Internal Medicine Adolescent Medicine; Visit Provider Physician Assistant
DX: I51.7 Cardiomegaly (principal); I44.1 Atrioventricular block, second degree; I44.0 Atrioventricular block, first degree; I48.91 Unspecified atrial fibrillation; I45.10 Unspecified right bundle-branch block; J44.9 Chronic obstructive pulmonary disease, unspecified; R94.31 Abnormal electrocardiogram [ECG] [EKG]; Z95.818 Presence of other cardiac implants and grafts; Z87.891 Personal history of nicotine dependence
CPT/HCPCS: 93306